=== PATIENT | female | born 1955 | race Caucasian/White ===

== ENCOUNTER → 2017-01-28 | Outpatient (CLI) | payer MEDICARE, MEDICAID ==
[2016-07-03 11:00] VITALS: BP 156/82
[~2017-01-28] MED LIST: ASPI-482 PO; ATOR40TA59 PO; BUDE9TAB PO; CLON0.5T PO; DEXT1TAB PO; DICY20TA3 PO; DIPH25CA58 PO; DULO30CA2 PO; ESOM40CA PO; ETAN50DI SQ; GABA-586 PO; HYDR-2666 PO; HYDR25TA9 PO; INSU100C SQ; INSU100V SQ; INSU100V8 SQ; LIDO700A4 TD; METF500T4 PO; METO10TA81 PO; MULT1TAB6 PO; OLME40TA PO; OMEG1CAP16 PO; ONDA4TAB10 PO; ONDA4TAB10 SL; PRAV40TA2 PO; SERT25TA PO; UBID1CAP19 PO
[2017-01-28 10:23] LABS: BASO # 0.1 x10^3/uL (0.0-0.2); BASO % 0 % (0-3); EOS % 1 % (0-3); HEMATOCRIT 39.9 % (36.0-47.0); HEMOGLOBIN 13.8 g/dL (12.0-15.5); LYMPH # 5.2 x10^3/uL (1.0-4.8); LYMPH % 31 % (24-48); MEAN CORPUSCULAR HEMOGLOBIN 31 pg (25-35); MEAN CORPUSCULAR HGB CONC 35 g/dL (31-37); MEAN CORPUSCULAR VOLUME 90 fL (79-100); MONO % 9 % (0-9); NEUT % 59 % (31-73); PLATELET COUNT 276 x10^3/uL (140-400); RED BLOOD COUNT 4.42 x10^6/uL (3.50-5.40); RED CELL DISTRIBUTION WIDTH 14.9 % (11.5-14.5); WHITE BLOOD COUNT 16.8 x10^3/uL (4.0-11.0)
[2017-01-28 10:26] LABS: BARBITURATES NEG (NEG); BENZODIAZEPINES NEG (NEG); CANNABINOIDS POS (NEG); COCAINE NEG (NEG); METHADONE NEG (NEG); OPIATES NEG (NEG); PHENCYCLIDINE NEG (NEG)
[2017-01-28 10:31] LABS: ALT (SGPT) 24 U/L (14-59); AST (SGOT) 15 U/L (15-37)
[2017-01-28 11:56] LABS: % EOS 2 % (0-5)
[2017-01-28 11:57] LABS: PLT ESTIMATE ADEQUATE (ADEQUATE)
--- NOTE | 2017-01-28 19:09 | EEG ---
DATE OF SERVICE: 01/28/2017 EEG NUMBER: [id number]. OBJECTIVE: This is a 61-year-old female patient with history of seizures. EEG was requested to evaluate cerebral activity. METHODS: Twenty electrodes were applied according to the international 10-20 electrode placement system. EKG monitoring, hyperventilation, intermittent photic stimulation, monopolar and bipolar montages are routinely utilized. The record was obtained on a digital system with video monitored. FINDINGS: 1. The patient was recorded in the awake and drowsy states. No sleep state was recorded. The overall background activity showed 10-30 microvolts. A posterior dominant rhythm of 8-9 Hz is observed. 2. Abnormalities. 3. No specific epileptiform discharge or electrographic seizure is seen. No focal or diffuse slowing. 3. Activation: Hyperventilation was performed with good efforts and normal response. Intermittent photic stimulation was performed with photic driving. No specific epileptiform discharge or electrographic seizures induced by hyperventilation or intermittent photic stimulation. IMPRESSION: This EEG is a normal study for the awake and drowsy states. No sleep state was recorded. No focal, lateralizing, specific epileptiform discharge, or electrographic seizure is seen. BIRGIT FUNEZ MD DR: Michael JOB#: [id number] / [id number] DMITRY
== END | disposition home or self-care (01) ==
LOC: RT 07:49
PROVIDERS: ATTEND Psychiatry & Neurology Neurology
DX: R56.9 Unspecified convulsions (principal)
CPT/HCPCS: 36415; 84443; 84450; 84460; 85007; 85027; 95816; G0481

== ENCOUNTER 2017-02-10 04:13 | Inpatient (IN) | payer MEDICAID, MEDICARE ==
[~2017-02-10] VITALS: Ht 165.1 cm; Wt 68.0 kg
[2017-02-10] MEDS ORDERED: ZIPRASIDONE IM 20 MG VIAL. IM ONE ×2 (04:35→05:00)
[2017-02-10 05:15] LABS: BASO % 0 % (0-3); EOS % 1 % (0-3); HEMOGLOBIN 12.4 g/dL (12.0-15.5); LYMPH # 3.5 x10^3/uL (1.0-4.8); LYMPH % 26 % (24-48); MEAN CORPUSCULAR HEMOGLOBIN 31 pg (25-35); MEAN CORPUSCULAR HGB CONC 34 g/dL (31-37); MEAN CORPUSCULAR VOLUME 92 fL (79-100); MONO % 8 % (0-9); NEUT % 65 % (31-73); PLATELET COUNT 220 x10^3/uL (140-400); RED BLOOD COUNT 4.04 x10^6/uL (3.50-5.40); RED CELL DISTRIBUTION WIDTH 14.8 % (11.5-14.5); WHITE BLOOD COUNT 13.6 x10^3/uL (4.0-11.0)
[2017-02-10 05:17] LABS: POTASSIUM ISTAT 3.1 mmol/L (3.5-5.0)
--- NOTE | 2017-02-10 05:27 | RAD ---
INDICATION: Altered mental status COMPARISON: January 09, 2016 TECHNIQUE: Axial CT images obtained through the head. One or more of the following individualized dose reduction techniques were utilized for this examination: 1. Automated exposure control; 2. Adjustment of the mA and/or kV according to patient size; 3. Use of iterative reconstruction technique. FINDINGS: No midline shift. Ventricles and sulci are prominent. Basilar cistern patent. No gross hemorrhage or intracranial mass. No displaced skull fracture. Regions of low attenuation of the white matter. IMPRESSION: No acute intracranial hemorrhage. Regions of low attenuation of the white matter. Nonspecific but frequently secondary to chronic small vessel ischemic disease. Apparent left frontal scalp cephalohematoma. Electronically signed by: Antony Armando (February 10, 2017 05:25:56)
[2017-02-10 05:30] LABS: CALCIUM 9.6 mg/dL (8.5-10.1); CREATININE 1.5 mg/dL (0.6-1.0); GFR 35.4; POTASSIUM 3.2 mmol/L (3.5-5.1)
[2017-02-10 05:37] LABS: ALBUMIN 3.7 g/dL (3.4-5.0); ALBUMIN/GLOBULIN RATIO 1.1 (1.0-1.7); TOTAL BILIRUBIN 0.4 mg/dL (0.2-1.0); TOTAL PROTEIN 7.2 g/dL (6.4-8.2)
[2017-02-10 05:56] LABS: BILIRUBIN,URINE NEGATIVE (NEG); GLUCOSE,URINE >=1000 mg/dL (NEG); NITRITE,URINE NEGATIVE (NEG); PH,URINE 5.5; PROTEIN,URINE 30 mg/dL (NEG-TRACE); UROBILINOGEN,URINE 0.2 mg/dL (0.2 mg/dL)
[2017-02-10 05:57] LABS: BARBITURATES NEG (NEG); BENZODIAZEPINES NEG (NEG); CANNABINOIDS POS (NEG); COCAINE NEG (NEG); METHADONE NEG (NEG); OPIATES NEG (NEG); PHENCYCLIDINE NEG (NEG)
[2017-02-10 06:08] LABS: BACTERIA,URINE 0 /HPF (0-FEW); SQUAMOUS EPITHELIAL CELL,UR FEW /LPF
[2017-02-10] MEDS ORDERED: ONDANSETRON PF 4 MG/2 ML VIAL. IV PRN ×2 (06:15→08:31)
--- NOTE | 2017-02-10 06:31 | PHYS DOC ---
Past Medical History Past Medical History: Depression, Diabetes-Type II, High Cholesterol, Hypertension Additional Past Medical Histor: psoriasis, neuropathy, gastroparesis Past Surgical History: Hysterectomy, Other Additional Past Surgical Histo: cataract surgery,SCAR TISSUE REMOVED FROM CHEST ,GASTROPARESIS Alcohol Use: Rarely Drug Use: Marijuana Adult General Chief Complaint Chief Complaint: SEIZURE HPI HPI History and physical exam is extremely limited secondary to patient's altered mental status and delirious type behavior. Patient was brought in by EMS and history is obtained by EMS report. No further history of the acute issue is obtainable at this time. No family to come with the patient. Patient is not answering questions appropriate. Patient is a 61 year old female who presents here today by EMS secondary to altered mental status. According to EMS they were called out to the department secondary to the reporting seizure-like activity. Patient was found the floor. There is no head trauma reported by EMS although on exam patient does have soft tissue swelling to her left forehead. Per EMS her vital signs were all within normal limits. Heart rate was in the 80s. Patient's blood sugar was greater than 100. Patient's blood pressure was within normal limits. Throughout the entire evaluation EMS reports that the patient was screaming kicking flailing and not acting appropriate. Upon arrival to the ER again history and physical exam was limited secondary to the patient's altered mental status. However on physical exam the patient's pupils were equally round and reactive to light. Her extraocular motions were intact. Patient was moaning groaning and speaking in discernible words and sounds. Patient would occasionally make appropriate, to regarding discomfort that she was having with people trying to hold her arms. Patient was diaphoretic. Patient was tachycardic. Patient's blood sugar was repeated and was greater than 100. Patient's blood pressure was within normal limits. Patient 's pulse ox was 98% on room air. Patient did have soft tissue swelling to her left forehead. Patient's heart was regular rate slightly tachycardic at 95-110. Patient's lungs were clear without wheezing rales or rhonchi. Patient is moving all extremities well and was flailing around ER. Patient had multiple skin tears with unclear etiology. In order to obtain further evaluation the patient was given 2 mg of IV Ativan as well as 10 of IM Geodon with some improvement in her agitation. Patient was placed in a c-collar and a CT scan of the head was ordered upon arrival. Patient's head CT did not reveal any acute pathology, bleed or abnormalities in the brain. Patient did have obvious soft tissue swelling around her left forehead on the CT scan. Upon reviewing the patient's record it was noted that the patient has recently had a normal EEG by Dr. galdamez on January 28. It is unclear why that was ordered so recently. Patient also had a recent hospitalization within the year where she was evaluated by neurology at that time she had a EEG performed that was also normal. At that time patient was discharged home with a diagnosis of delirium of unclear etiology. Patient's labs and the ER have been unremarkable. Patient's CBC and chemistry were within normal limits. An i-STAT was obtained which revealed an anion gap of 17. Patient had a slight acidosis with a bicarbonate of 16. Patient's urine drug screen was positive only for marijuana. Patient's alcohol level was unremarkable. Assessment and plan delirium/encephalopathy/altered mental status of unclear etiology. Patient has improved after the Ativan and Geodon. Patient be admitted to the hospital for further evaluation. I discussed the case with Dr. fontenot. We have put in a consult for neurology for further evaluation of her altered mentation. It was initially presumed that the patient had a history of seizure with subsequent were reported to by EMS however looking at the patient's history with a normal EEG that makes it unlikely. Initially it was felt that the patient might be postictal with confusion however again with 2 normal EKGs although not impossible makes it much less likely. Kriegel care time 35 minutes were utilized and the treatment and management of this patient's altered mental status and confusion and agitation Review of Systems Review of Systems Unable to obtain. Current Medications Current Medications Current Medications Medications (Trade) Dose Ordered Sig/Nicki Start Time Stop Time Status Last Admin Dose Admin Lorazepam (Ativan) 2 mg 1X ONCE 02/10/17 05:00 02/10/17 05:01 DC 02/10/17 04:40 2 MG Ondansetron HCl (Zofran) 4 mg PRN Q8HRS PRN 02/10/17 06:15 02/11/17 06:14 Sodium Chloride 1,000 ml @ 125 mls/hr Q8H 02/10/17 06:30 02/11/17 06:29 Ziprasidone (Geodon Im) 10 mg 1X ONCE 02/10/17 05:00 02/10/17 05:01 DC 02/10/17 04:42 10 MG Allergies Allergies Allergies Coded Allergies Type Severity Reaction Last Updated Verified metoclopramide Adverse Reaction Intermediate 01/10/16 Yes Physical Exam Physical Exam Constitutional: Well developed, well nourished, HENT: Normocephalic, soft tissue swelling left forehead., bilateral external ears normal, oropharynx moist, , nose normal. [] Eyes: PERRLA, EOMI, conjunctiva normal, Neck: Normal range of motion, no tenderness, supple, no stridor. [] Cardiovascular:Heart rate regular rhythm, tachycardic. Lungs & Thorax: Bilateral breath sounds clear to auscultation [] Abdomen: Bowel sounds normal, soft, no tenderness, no masses, no pulsatile masses. [] Skin: Warm, dry, no erythema, no rash. Multiple skin tears in her upper 70s. [] Back: No tenderness, no CVA tenderness. [] Extremities: No tenderness, no cyanosis, no clubbing, ROM intact, no edema. [] Neurologic: Agitated behavior. Moving all extremities. Current Patient Data Vital Signs Vital Signs Date Time Temp Pulse Resp B/P (MAP) Pulse Ox O2 Delivery O2 Flow Rate FiO2 02/10/17 04:30 96.3 75 20 132/84 (100) 95 Room Air 96.3 Lab Values Laboratory Tests Test 02/10/17 04:22 02/10/17 04:40 02/10/17 05:04 02/10/17 05:07 Glucose (Fingerstick) 202 mg/dL (70-99) H White Blood Count 13.6 x10^3/uL (4.0-11.0) H Red Blood Count 4.04 x10^6/uL (3.50-5.40) Hemoglobin 12.4 g/dL (12.0-15.5) Hematocrit 37.0 % (36.0-47.0) Mean Corpuscular Volume 92 fL (79-100) Mean Corpuscular Hemoglobin 31 pg (25-35) Mean Corpuscular Hemoglobin Concent 34 g/dL (31-37) Red Cell Distribution Width 14.8 % (11.5-14.5) H Platelet Count 220 x10^3/uL (140-400) Neutrophils (%) (Auto) 65 % (31-73) Lymphocytes (%) (Auto) 26 % (24-48) Monocytes (%) (Auto) 8 % (0-9) Eosinophils (%) (Auto) 1 % (0-3) Basophils (%) (Auto) 0 % (0-3) Neutrophils # (Auto) 8.8 x10^3uL (1.8-7.7) H Lymphocytes # (Auto) 3.5 x10^3/uL (1.0-4.8) Monocytes # (Auto) 1.1 x10^3/uL (0.0-1.1) Eosinophils # (Auto) 0.1 x10^3/uL (0.0-0.7) Basophils # (Auto) 0.0 x10^3/uL (0.0-0.2) Platelet Estimate Pending Sodium Level 136 mmol/L (136-145) Potassium Level 3.2 mmol/L (3.5-5.1) L Chloride Level 97 mmol/L (98-107) L Carbon Dioxide Level 19 mmol/L (21-32) L Anion Gap 20 (6-14) H 22 mmol/L (6-14) H Blood Urea Nitrogen 22 mg/dL (7-20) H Creatinine 1.5 mg/dL (0.6-1.0) H Estimated GFR (Cockcroft-Gault) 35.4 BUN/Creatinine Ratio 15 (6-20) Glucose Level 208 mg/dL (70-99) H 208 mg/dL (70-99) H Calcium Level 9.6 mg/dL (8.5-10.1) Total Bilirubin 0.4 mg/dL (0.2-1.0) Aspartate Amino Transferase (AST) 36 U/L (15-37) Alanine Aminotransferase (ALT) 38 U/L (14-59) Alkaline Phosphatase 57 U/L (46-116) Total Protein 7.2 g/dL (6.4-8.2) Albumin 3.7 g/dL (3.4-5.0) Albumin/Globulin Ratio 1.1 (1.0-1.7) Ethyl Alcohol Level < 10 mg/dL (0-10) POC Troponin I 0.00 ng/ml (<0.08) POC Hemoglobin 12.6 g/dL (12-15) POC Hematocrit 37 % (36-40) POC Sodium 134 mmol/L (135-145) L POC Potassium 3.1 mmol/L (3.5-5.0) L POC Chloride 101 mmol/L (98-110) POC Total CO2 16 mmol/L (23-32) L POC Blood Urea Nitrogen 20 mg/dL (8-26) POC Creatinine 1.1 mg/dL (0.5-1.4) POC Ionized Calcium (Renae) 1.01 mmol/L (1.13-1.32) L Test 02/10/17 05:24 Urine Collection Type Unknown Urine Color Yellow Urine Clarity Clear Urine pH 5.5 Urine Specific [place] 1.020 Urine Protein 30 mg/dL (NEG-TRACE) Urine Glucose (UA) >=1000 mg/dL (NEG) Urine Ketones (Stick) Negative mg/dL (NEG) Urine Blood Moderate (NEG) Urine Nitrite Negative (NEG) Urine Bilirubin Negative (NEG) Urine Urobilinogen Dipstick 0.2 mg/dL (0.2 mg/dL) Urine Leukocyte Esterase Negative (NEG) Urine RBC 1-2 /HPF (0-2) Urine WBC 1-4 /HPF (0-4) Urine Squamous Epithelial Cells Few /LPF Urine Bacteria 0 /HPF (0-FEW) Urine Mucus Slight /LPF Urine Opiates Screen Neg (NEG) Urine Methadone Screen Neg (NEG) Urine Barbiturates Neg (NEG) Urine Phencyclidine Screen Neg (NEG) Urine Amphetamine/Methamphetamine Neg (NEG) Urine Benzodiazepines Screen Neg (NEG) Urine Cocaine Screen Neg (NEG) Urine Cannabinoids Screen Pos (NEG) Urine Ethyl Alcohol Neg (NEG) Laboratory Tests 02/10/17 04:40 Laboratory Tests 02/10/17 04:40 02/10/17 05:07 EKG EKG [] Radiology/Procedures Radiology/Procedures [] Course & Med Decision Making Course & Med Decision Making Pertinent Labs and Imaging studies reviewed. (See chart for details) [] Dragon Disclaimer Dragon Disclaimer This electronic medical record was generated, in whole or in part, using a voice recognition dictation system. Departure Departure Impression: Primary Impression: Acute delirium Disposition: 09 ADMITTED INPATIENT Admitting Physician: Sofya Fontenot Condition: GUARDED Referrals: UNKNOWN PCP NAME (PCP) GRAHAM MEEHAN MD February 10, 2017 06:31
--- NOTE | 2017-02-10 06:49 | ACF ---
Admission Forms Criteria DELIRIUM Clinical Indications for Admission to Inpatient Care (Place 'X' for any and all applicable criteria): Admission is indicated for ANY ONE of the following(1)(2)(3)(4)(5): [ ]I. Delirium due to alcohol or sedative [A] withdrawal [X]II. Delirium of uncertain etiology that has not responded to appropriate treatment in an emergency department or urgent care setting [ ]III. Delirium that prevents performance of a life-sustaining function (eg, feeding or hydrating one self) Extended stay beyond goal length of stay may be needed for (2)(26): [ ]a) Delayed resolution of delirium [ ]b) Persistent dangerous behavior [ ]c) Persistent inability to perform an essential function[P] that cannot be managed at a lower level of care The original [employer] content created by [employer] has been revised. The portions of the content which have been revised are identified through the use of italic text or in bold, and [facility] has neither reviewed nor approved the modified material. All other unmodified content is copyright [facility] [employer]. Please see references footnoted in the original [facility] [employer] edition 2016 Admission Criteria Met?: Yes LEI MANE February 10, 2017 06:49
[2017-02-10 06:58] LABS: PLT ESTIMATE ADEQUATE (ADEQUATE)
--- NOTE | 2017-02-10 08:31 | PDOC1 ---
History and Physical Date of Admission Date of Admission DATE: 02/10/17 TIME: 08:23 Identification/Chief Complaint Chief Complaint confusion Problems: Source Source: Caregiver, Chart review, Patient History of Present Illness History of Present Illness 61 y.o female, lives at home with , but no one at bedside at ER on my encounter, admitted for acute delirium without a clear cause, Looking at past admits, she has been here before for similar presentation, had EEG twice , none showed epileptic focus, followed by neuro then. Service assessment in Jun 2016 when she presented similarly was the ff: Convulsive syncope, or possible seizure following a concussion, but I doubt that she had a true epileptic seizure. Chronic nausea and vomiting due to gastroparesis. She is a high fall risk, has had admits for gastroparesis too, She is a diabetic Hs is limited, she falls back to sleep, pupils equal, no FNDs, and CT head neg for acute pathology (I have personally reviewed), LAbs show mild hypokalemia and ARTUR, hypochloremia, mild gap acidosis and leukocytosis at 13. UA shows glucosuria but no UTI. VS ok UDS did test positive for cannabinoids Past Medical History Cardiovascular: HTN, Hyperlipidemia Pulmonary: No pertinent hx CENTRAL NERVOUS SYSTEM: Other GI: Constipation, Diverticulosis, GERD, Other Heme/Onc: No pertinent hx Hepatobiliary: No pertinent hx Psych: Depression Musculoskeletal: Osteoarthritis Rheumatologic: No pertinent hx Infectious disease: No pertinent hx Renal/: Chronic renal insuff Endocrine: Diabetes Past Surgical History Past Surgical History: Appendectomy, , Tonsillectomy, Hysterectomy, Other Family History Family History: Coronary Artery Disease, Stroke Social History Smoke: No ALCOHOL: occassional Drugs: Marijuana Current Problem List Problem List Problems Medical Problems: (1) Acute delirium Status: Acute Problems: Current Medications Current Medications Current Medications Lorazepam (Ativan) 2 mg STK-MED ONCE .ROUTE ; Start 02/10/17 at 04:23; Stop at 04:24; Status DC Ziprasidone (Geodon Im) 20 mg STK-MED ONCE IM ; Start 02/10/17 at 04:35; Stop at 04:36; Status DC Lorazepam (Ativan) 2 mg 1X ONCE IV Last administered on 02/10/17t 04:40; Start 5/17/17 at 05:00; Stop 02/10/17 at 05:01; Status DC Ziprasidone (Geodon Im) 10 mg 1X ONCE IM Last administered on 02/10/17t 04:42 ; Start 02/10/17 at 05:00; Stop 02/10/17 at 05:01; Status DC Ondansetron HCl (Zofran) 4 mg PRN Q8HRS PRN IV NAUSEA/VOMITING; Start 02/10/17 at 06:15; Stop 02/11/17 at 06:14 Sodium Chloride 1,000 ml @ 125 mls/hr Q8H IV ; Start 02/10/17 at 06:30; Stop at 06:29 Active Scripts Active Zofran Odt (Ondansetron) 4 Mg Tab.rapdis 4 Mg PO BID PRN Lidoderm (Lidocaine) 700 Mg Adh..patch 1 Patch TD DAILY Hydrocodone-Apap 5-325 (Hydrocodone Bit/Acetaminophen) 1 Each Tablet 1 Tab PO PRN Q6HRS PRN Reported Humalog (Insulin Lispro) 100 Unit/1 Ml Vial 100 Unit SQ Enbrel (Etanercept) 50 Mg/1 Ml Disp.syrin 50 Mg SQ WEEKLY Benicar (Olmesartan Medoxomil) 40 Mg Tablet 1 Tab PO DAILY Cough & Cold Tablet (Dextromethorphan Hbr/Chlor-Mal) 1 Each Tablet 1 Each PO PRN Dicyclomine Hcl 20 Mg Tablet 20 Mg PO QID PRN Atorvastatin Calcium 40 Mg Tablet 1 Tab PO QHS Centrum Complete Multivit Tab (Multivitamin/Iron/Folic Acid) 1 Each Tablet 1 Each PO DAILY Uceris (Budesonide) 9 Mg Tabdr...er 9 Mg PO DAILY Benadryl (Diphenhydramine Hcl) 25 Mg Capsule 1 Cap PO Zoloft (Sertraline Hcl) 25 Mg Tablet Unknown Dose PO DAILY Zofran Odt (Ondansetron) 4 Mg Tab.rapdis 1 Tab SL Q8HRS Neurontin (Gabapentin) 300 Mg Capsule 300 Mg PO TID Aspir 81 (Aspirin) 81 Mg Tablet. 81 Mg PO DAILY Coq-10 & Fish Oil Softgel (Ubidecarenone/[place]-3/Vit E) 1 Each Capsule 1 Each PO DAILY Nexium Capsule (Esomeprazole Magnesium) 40 Mg Capsule. 40 Mg PO DAILY Fish Oil 1,000 Mg Softgel ([place]-3 Fatty Acids/Fish Oil) 1 Each Capsule 1 Each PO DAILY Cymbalta (Duloxetine Hcl) 30 Mg Capsule.dr 60 Mg PO BID Pravastatin Sodium 40 Mg Tablet 40 Mg PO DAILY Klonopin (Clonazepam) 0.5 Mg Tablet 0.5 Mg PO BID PRN Allergies Allergies: Coded Allergies: metoclopramide (Verified Adverse Reaction, Intermediate, 01/10/16) Muscle twitching around mouth. ROS Review of System limited, confused Physical Exam General: No acute distress, Other (drowsy, confused but calm) HEENT: Atraumatic, PERRLA Lungs: Clear to auscultation, Normal air movement Heart: S1S2, RRR, no thrills, no rubs, no gallops Cardiovascular: S1, S2 Breasts: Normal, Rt breast nml w/o mass, Lt breast nml w/o mass, Nipples normal Abdomen: Normal bowel sounds, Soft, No tenderness, No hepatosplenomegaly, No masses Rectal Exam: not examined PELVIC: Nml ext genitalia Extremities: No clubbing, No cyanosis, No edema, Normal pulses, No tenderness/ swelling Skin: No rashes, No breakdown, No significant lesion Neuro: Other (; no FNDs) Psych/Mental Status: Other (drowsy) Vitals Vitals Vital Signs Date Time Temp Pulse Resp B/P (MAP) Pulse Ox O2 Delivery O2 Flow Rate FiO2 02/10/17 05:53 82 19 142/82 (102) 97 Room Air 02/10/17 04:30 98.2 98.2 Labs Labs Laboratory Tests Test 02/10/17 04:22 02/10/17 04:40 02/10/17 05:04 02/10/17 05:07 Glucose (Fingerstick) 202 mg/dL (70-99) White Blood Count 13.6 x10^3/uL (4.0-11.0) Red Blood Count 4.04 x10^6/uL (3.50-5.40) Hemoglobin 12.4 g/dL (12.0-15.5) Hematocrit 37.0 % (36.0-47.0) Mean Corpuscular Volume 92 fL (79-100) Mean Corpuscular Hemoglobin 31 pg (25-35) Mean Corpuscular Hemoglobin Concent 34 g/dL (31-37) Red Cell Distribution Width 14.8 % (11.5-14.5) Platelet Count 220 x10^3/uL (140-400) Neutrophils (%) (Auto) 65 % (31-73) Lymphocytes (%) (Auto) 26 % (24-48) Monocytes (%) (Auto) 8 % (0-9) Eosinophils (%) (Auto) 1 % (0-3) Basophils (%) (Auto) 0 % (0-3) Neutrophils # (Auto) 8.8 x10^3uL (1.8-7.7) Lymphocytes # (Auto) 3.5 x10^3/uL (1.0-4.8) Monocytes # (Auto) 1.1 x10^3/uL (0.0-1.1) Eosinophils # (Auto) 0.1 x10^3/uL (0.0-0.7) Basophils # (Auto) 0.0 x10^3/uL (0.0-0.2) Segmented Neutrophils % 68 % (35-66) Lymphocytes % 30 % (24-48) Monocytes % 2 % (0-10) Platelet Estimate Adequate (ADEQUATE) Sodium Level 136 mmol/L (136-145) Potassium Level 3.2 mmol/L (3.5-5.1) Chloride Level 97 mmol/L (98-107) Carbon Dioxide Level 19 mmol/L (21-32) Anion Gap 20 (6-14) 22 mmol/L (6-14) Blood Urea Nitrogen 22 mg/dL (7-20) Creatinine 1.5 mg/dL (0.6-1.0) Estimated GFR (Cockcroft-Gault) 35.4 BUN/Creatinine Ratio 15 (6-20) Glucose Level 208 mg/dL (70-99) 208 mg/dL (70-99) Calcium Level 9.6 mg/dL (8.5-10.1) Total Bilirubin 0.4 mg/dL (0.2-1.0) Aspartate Amino Transf (AST/SGOT) 36 U/L (15-37) Alanine Aminotransferase (ALT/SGPT) 38 U/L (14-59) Alkaline Phosphatase 57 U/L (46-116) Total Protein 7.2 g/dL (6.4-8.2) Albumin 3.7 g/dL (3.4-5.0) Albumin/Globulin Ratio 1.1 (1.0-1.7) Ethyl Alcohol Level < 10 mg/dL (0-10) Bedside Troponin I 0.00 ng/ml (<0.08) Bedside Hemoglobin 12.6 g/dL (12-15) Bedside Hematocrit 37 % (36-40) Bedside Sodium 134 mmol/L (135-145) Bedside Potassium 3.1 mmol/L (3.5-5.0) Bedside Chloride 101 mmol/L (98-110) Bedside Total CO2 16 mmol/L (23-32) Bedside Blood Urea Nitrogen 20 mg/dL (8-26) Bedside Creatinine 1.1 mg/dL (0.5-1.4) Bedside Ionized Calcium (Renae) 1.01 mmol/L (1.13-1.32) Test 02/10/17 05:24 Urine Collection Type Unknown Urine Color Yellow Urine Clarity Clear Urine pH 5.5 Urine Specific Carefree 1.020 Urine Protein 30 mg/dL (NEG-TRACE) Urine Glucose (UA) >=1000 mg/dL (NEG) Urine Ketones (Stick) Negative mg/dL (NEG) Urine Blood Moderate (NEG) Urine Nitrite Negative (NEG) Urine Bilirubin Negative (NEG) Urine Urobilinogen Dipstick 0.2 mg/dL (0.2 mg/dL) Urine Leukocyte Esterase Negative (NEG) Urine RBC 1-2 /HPF (0-2) Urine WBC 1-4 /HPF (0-4) Urine Squamous Epithelial Cells Few /LPF Urine Bacteria 0 /HPF (0-FEW) Urine Mucus Slight /LPF Urine Opiates Screen Neg (NEG) Urine Methadone Screen Neg (NEG) Urine Barbiturates Neg (NEG) Urine Phencyclidine Screen Neg (NEG) Urine Amphetamine/Methamphetamine Neg (NEG) Urine Benzodiazepines Screen Neg (NEG) Urine Cocaine Screen Neg (NEG) Urine Cannabinoids Screen Pos (NEG) Urine Ethyl Alcohol Neg (NEG) Laboratory Tests Test 02/10/17 04:22 02/10/17 04:40 02/10/17 05:04 02/10/17 05:07 Glucose (Fingerstick) 202 mg/dL (70-99) White Blood Count 13.6 x10^3/uL (4.0-11.0) Red Blood Count 4.04 x10^6/uL (3.50-5.40) Hemoglobin 12.4 g/dL (12.0-15.5) Hematocrit 37.0 % (36.0-47.0) Mean Corpuscular Volume 92 fL (79-100) Mean Corpuscular Hemoglobin 31 pg (25-35) Mean Corpuscular Hemoglobin Concent 34 g/dL (31-37) Red Cell Distribution Width 14.8 % (11.5-14.5) Platelet Count 220 x10^3/uL (140-400) Neutrophils (%) (Auto) 65 % (31-73) Lymphocytes (%) (Auto) 26 % (24-48) Monocytes (%) (Auto) 8 % (0-9) Eosinophils (%) (Auto) 1 % (0-3) Basophils (%) (Auto) 0 % (0-3) Neutrophils # (Auto) 8.8 x10^3uL (1.8-7.7) Lymphocytes # (Auto) 3.5 x10^3/uL (1.0-4.8) Monocytes # (Auto) 1.1 x10^3/uL (0.0-1.1) Eosinophils # (Auto) 0.1 x10^3/uL (0.0-0.7) Basophils # (Auto) 0.0 x10^3/uL (0.0-0.2) Segmented Neutrophils % 68 % (35-66) Lymphocytes % 30 % (24-48) Monocytes % 2 % (0-10) Platelet Estimate Adequate (ADEQUATE) Sodium Level 136 mmol/L (136-145) Potassium Level 3.2 mmol/L (3.5-5.1) Chloride Level 97 mmol/L (98-107) Carbon Dioxide Level 19 mmol/L (21-32) Anion Gap 20 (6-14) 22 mmol/L (6-14) Blood Urea Nitrogen 22 mg/dL (7-20) Creatinine 1.5 mg/dL (0.6-1.0) Estimated GFR (Cockcroft-Gault) 35.4 BUN/Creatinine Ratio 15 (6-20) Glucose Level 208 mg/dL (70-99) 208 mg/dL (70-99) Calcium Level 9.6 mg/dL (8.5-10.1) Total Bilirubin 0.4 mg/dL (0.2-1.0) Aspartate Amino Transf (AST/SGOT) 36 U/L (15-37) Alanine Aminotransferase (ALT/SGPT) 38 U/L (14-59) Alkaline Phosphatase 57 U/L (46-116) Total Protein 7.2 g/dL (6.4-8.2) Albumin 3.7 g/dL (3.4-5.0) Albumin/Globulin Ratio 1.1 (1.0-1.7) Ethyl Alcohol Level < 10 mg/dL (0-10) Bedside Troponin I 0.00 ng/ml (<0.08) Bedside Hemoglobin 12.6 g/dL (12-15) Bedside Hematocrit 37 % (36-40) Bedside Sodium 134 mmol/L (135-145) Bedside Potassium 3.1 mmol/L (3.5-5.0) Bedside Chloride 101 mmol/L (98-110) Bedside Total CO2 16 mmol/L (23-32) Bedside Blood Urea Nitrogen 20 mg/dL (8-26) Bedside Creatinine 1.1 mg/dL (0.5-1.4) Bedside Ionized Calcium (Renae) 1.01 mmol/L (1.13-1.32) Test 02/10/17 05:24 Urine Collection Type Unknown Urine Color Yellow Urine Clarity Clear Urine pH 5.5 Urine Specific Carefree 1.020 Urine Protein 30 mg/dL (NEG-TRACE) Urine Glucose (UA) >=1000 mg/dL (NEG) Urine Ketones (Stick) Negative mg/dL (NEG) Urine Blood Moderate (NEG) Urine Nitrite Negative (NEG) Urine Bilirubin Negative (NEG) Urine Urobilinogen Dipstick 0.2 mg/dL (0.2 mg/dL) Urine Leukocyte Esterase Negative (NEG) Urine RBC 1-2 /HPF (0-2) Urine WBC 1-4 /HPF (0-4) Urine Squamous Epithelial Cells Few /LPF Urine Bacteria 0 /HPF (0-FEW) Urine Mucus Slight /LPF Urine Opiates Screen Neg (NEG) Urine Methadone Screen Neg (NEG) Urine Barbiturates Neg (NEG) Urine Phencyclidine Screen Neg (NEG) Urine Amphetamine/Methamphetamine Neg (NEG) Urine Benzodiazepines Screen Neg (NEG) Urine Cocaine Screen Neg (NEG) Urine Cannabinoids Screen Pos (NEG) Urine Ethyl Alcohol Neg (NEG) VTE Prophylaxis Ordered VTE Prophylaxis Devices: Yes VTE Pharmacological Prophylaxi: Yes Assessment/Plan Assessment/Plan 1. Acute delirium 2. Neg EEG twice in past 3. Reactive leukocytosis, SIRS , no Sepsis 4. DM 2 with gastroparesis and glucosuria 5. MIld gap acidosis with hypochloremia and hypokalemia 6. Mild thormbocytopenia (208) 7. MEtabolic enceph (refer to # 1) PLAN: Would do IVF to correct elyte abN NPO till fully awake MAy check ESR, neuro consult PT/OT SUpportive meds HOld meds that can worsen encephalopathy DVT prophy with SCDs - has low platelets WOF further hyperglycemia SSI BMP again ada Seen at ER GIANNA POON MD February 10, 2017 08:31
[2017-02-10] MEDS ORDERED: ONDANSETRON ODT 4 MG TAB.RAPDIS. PO PRN ×2 (08:45)
[2017-02-10] MEDS ORDERED: ACETAMINOPHEN 500 MG TABLET PO PRN (08:45)
[2017-02-10] MEDS ORDERED: clonazePAM 0.5 MG TABLET PO PRN (08:45)
[2017-02-10] MEDS ORDERED: DEXTROSE 50% 25 GM / 50ML DISP.SYRIN. IV PRN (08:45)
[2017-02-10] MEDS ORDERED: DICYCLOMINE HCL 10 MG CAPSULE PO PRN ×2 (08:45)
[2017-02-10] MEDS ORDERED: diphenhydrAMINE HCL 25 MG CAPSULE PO PRN (08:45)
[2017-02-10] MEDS ORDERED: FATTY ACIDS PO SCH (09:00)
[2017-02-10] MEDS ORDERED: NON FORMULARY ITEM (Etanercept (Enbrel) 50 MG) SQ SCH (09:00)
[2017-02-10] MEDS ORDERED: FISH OIL PO SCH (09:00)
[2017-02-10] MEDS ORDERED: OMEGA PO SCH (09:00)
[2017-02-10 09:30] VITALS: BP 135/72
[2017-02-10] MEDS: IV NORMAL SALINE 1000ML BAG 1,000 ML IV SCH ×3 (10:06→18:33)
[2017-02-10] MEDS: PANTOPRAZOLE 40 MG TABLET.DR. PO SCH (10:07)
[2017-02-10] MEDS: ASPIRIN ENTERIC COATED 81 MG TABLET.DR. PO SCH (10:07)
[2017-02-10] MEDS: GABAPENTIN 300 MG CAPSULE. PO SCH ×3 (10:08→21:06)
[2017-02-10] MEDS: MULTIVITAMIN with MINERAL TABLET. PO SCH (10:08)
[2017-02-10] MEDS: LOSARTAN POTASSIUM 50 MG TABLET. PO SCH (10:08)
[2017-02-10] MEDS: BUDESONIDE 3 MG CAP.ER.24H. PO SCH (10:08)
[2017-02-10] MEDS: INSULIN ASPART 300 UNITS/3 ML INSULN.PEN SQ SCH ×3 (10:09→16:29)
[2017-02-10] MEDS: LIDOCAINE (700MG/PATCH) PATCH. TD SCH (10:10)
[2017-02-10] MEDS: OMEGA-3 FATTY ACIDS/FISH OIL 1,000 MG CAPSULE. PO SCH (10:13)
[2017-02-10 11:00] VITALS: BP 121/77
--- NOTE | 2017-02-10 11:54 | PDOC2 ---
NEUROLOGY CONSULT Date of Admission Date of Admission DATE: 02/10/17 TIME: 11:42 Reason for Consult Reason for Consult: Altered mental status Referring Physician Referring Physician: Dr. Yang Source Source: Chart review, Patient History of Present Illness History of Present Illness That patient is a 61-year-old right-handed female admitted with altered mental status. No one is available to give history. Apparently some convulsive activity was observed. The patient was here in December and June 2016 for altered mental status. EEG was negative in December. When I saw the patient in June, I got the impression of nonepileptic seizures, possibly just convulsive syncope as she had fallen and hit her head on the toilet. Then the patient saw Dr. Gonzalez last month in the office who obtain another EEG, 01/28, which was also negative. The patient is unable to provide further history. Past Medical History Cardiovascular: HTN, Syncope, Hyperlipidemia CENTRAL NERVOUS SYSTEM: Other ( headaches, numbness) GI: Constipation, Diverticulosis (itis), GERD, Other ( gastroparesis, diarrhea) Psych: Anxiety, Depression ENT: Other (Hearing loss, cataracts) Renal/: Chronic renal insuff Endocrine: Diabetes Past Surgical History Past Surgical History: Appendectomy, , Tonsillectomy, Hysterectomy, Colon Resection, Other ( lysis of adhesions) Family History Family History: No pertinent hx Social History Social History , occasional alcohol, denies tobacco or street drugs Current Medications Current Medications Current Medications Lorazepam (Ativan) 2 mg STK-MED ONCE .ROUTE ; Start 02/10/17 at 04:23; Stop at 04:24; Status DC Ziprasidone (Geodon Im) 20 mg STK-MED ONCE IM ; Start 02/10/17 at 04:35; Stop at 04:36; Status DC Lorazepam (Ativan) 2 mg 1X ONCE IV Last administered on 02/10/17 04:40; Start 02/10/17 at 05:00; Stop 02/10/17 at 05:01; Status DC Ziprasidone (Geodon Im) 10 mg 1X ONCE IM Last administered on 02/10/17t 04:42 ; Start 02/10/17 at 05:00; Stop 02/10/17 at 05:01; Status DC Ondansetron HCl (Zofran) 4 mg PRN Q8HRS PRN IV NAUSEA/VOMITING; Start 02/10/17 at 06:15; Stop 02/10/17 at 08:34; Status DC Sodium Chloride 1,000 ml @ 125 mls/hr Q8H IV Last administered on 02/10/17 10 :06; Start 02/10/17 at 06:30; Stop 02/11/17 at 06:29 Ondansetron HCl (Zofran) 4 mg PRN Q6HRS PRN IV NAUSEA/VOMITING; Start 02/10/17 at 08:31; Stop 02/11/17 at 08:30 Acetaminophen (Tylenol) 500 mg PRN Q6HRS PRN PO MILD PAIN / TEMP; Start at 08:45 Aspirin (Ecotrin) 81 mg DAILY08 PO Last administered on 02/10/17t 10:07; Start 02/10/17 at 09:00 Atorvastatin Calcium (Lipitor) 40 mg QHS PO ; Start 02/10/17 at 21:00; Stop at 21:00; Status DC Clonazepam (KlonoPIN) 0.5 mg PRN BID PRN PO ANXIETY; Start 02/10/17 at 08:45 Diphenhydramine HCl (Benadryl) 25 mg PRN TID PRN PO itch; Start 02/10/17 at 08: 45 Acetaminophen/ Hydrocodone Bitart (Lortab 5/325) 1 tab PRN Q6HRS PRN PO PAIN; Start 02/10/17 at 08:45 Lidocaine (Lidoderm) 1 patch DAILY TD ; Start 02/10/17 at 09:00 Ondansetron HCl (Zofran Odt) 4 mg PRN Q8HRS PRN PO n/v; Start 02/10/17 at 08:45 Ondansetron HCl (Zofran Odt) 4 mg PRN BID PRN PO NAUSEA/VOMITING; Start at 08:45 Budesonide (Entocort) 9 mg DAILY PO Last administered on 02/10/17t 10:08; Start 02/10/17 at 09:00 Dicyclomine HCl (Bentyl) 10 mg PRN QID PRN PO BOWEL SPASMS; Start 02/10/17 at 08:45; Stop 02/10/17 at 08:45; Status DC Pantoprazole Sodium (Protonix) 40 mg DAILYAC PO Last administered on 02/10/17 10:07; Start 02/10/17 at 09:30 Non-Formulary Medication 50 mg WEEKLY SQ ; Start 02/10/17 at 09:00; Status UNV Gabapentin (Neurontin) 300 mg TID PO Last administered on 02/10/17 10:08; Start 02/10/17 at 09:30 Multivitamins (Thera M Plus) 1 tab DAILY PO Last administered on 02/10/17 10: 08; Start 02/10/17 at 10:00 Losartan Potassium (Cozaar) 100 mg DAILY PO Last administered on 02/10/17 10: 08; Start 02/10/17 at 10:00 Non-Formulary Medication 1 each DAILY PO ; Start 02/10/17 at 09:00; Status UNV Atorvastatin Calcium (Lipitor) 10 mg QHS PO ; Start 02/10/17 at 21:00 Fish Oil (Fish Oil) 1,000 mg DAILY PO Last administered on 02/10/17 10:13; Start 02/10/17 at 09:30 Insulin Aspart (NovoLOG) 0-9 UNITS TIDWMEALS SQ ; Start 02/10/17 at 09:00 Dextrose (Dextrose 50%-Water Syringe) 12.5 gm PRN Q15MIN PRN IV SEE COMMENTS; Start 02/10/17 at 08:45 Dicyclomine HCl (Bentyl) 20 mg PRN QID PRN PO BOWEL SPASMS; Start 02/10/17 at 08:45 Active Scripts Active Zofran Odt (Ondansetron) 4 Mg Tab.rapdis 4 Mg PO BID PRN Lidoderm (Lidocaine) 700 Mg Adh..patch 1 Patch TD DAILY Hydrocodone-Apap 5-325 (Hydrocodone Bit/Acetaminophen) 1 Each Tablet 1 Tab PO PRN Q6HRS PRN Reported Humalog (Insulin Lispro) 100 Unit/1 Ml Vial 100 Unit SQ Enbrel (Etanercept) 50 Mg/1 Ml Disp.syrin 50 Mg SQ WEEKLY Benicar (Olmesartan Medoxomil) 40 Mg Tablet 1 Tab PO DAILY Cough & Cold Tablet (Dextromethorphan Hbr/Chlor-Mal) 1 Each Tablet 1 Each PO PRN Dicyclomine Hcl 20 Mg Tablet 20 Mg PO QID PRN Atorvastatin Calcium 40 Mg Tablet 1 Tab PO QHS Centrum Complete Multivit Tab (Multivitamin/Iron/Folic Acid) 1 Each Tablet 1 Each PO DAILY Uceris (Budesonide) 9 Mg Tabdr...er 9 Mg PO DAILY Benadryl (Diphenhydramine Hcl) 25 Mg Capsule 1 Cap PO Zoloft (Sertraline Hcl) 25 Mg Tablet Unknown Dose PO DAILY Zofran Odt (Ondansetron) 4 Mg Tab.rapdis 1 Tab SL Q8HRS Neurontin (Gabapentin) 300 Mg Capsule 300 Mg PO TID Aspir 81 (Aspirin) 81 Mg Tablet.dr 81 Mg PO DAILY Coq-10 & Fish Oil Softgel (Ubidecarenone/Hadley-3/Vit E) 1 Each Capsule 1 Each PO DAILY Nexium Capsule (Esomeprazole Magnesium) 40 Mg Capsule.dr 40 Mg PO DAILY Fish Oil 1,000 Mg Softgel (Hadley-3 Fatty Acids/Fish Oil) 1 Each Capsule 1 Each PO DAILY Cymbalta (Duloxetine Hcl) 30 Mg Capsule.dr 60 Mg PO BID Pravastatin Sodium 40 Mg Tablet 40 Mg PO DAILY Klonopin (Clonazepam) 0.5 Mg Tablet 0.5 Mg PO BID PRN Allergies Allergies: Coded Allergies: metoclopramide (Verified Adverse Reaction, Intermediate, 01/10/16) Muscle twitching around mouth. ROS Review of System Not reliably obtained Physical Exam Physical Examination PHYSICAL EXAMINATION: Vital signs: see above. General appearance is normal and in no acute distress. HEENT: Normocephalic and nontraumatic. Eyes, nose, ears, and throat are unremarkable. Neck is supple. No lymphadenopathy. No bruits are heard over the carotid artery. No crepitus. NEUROLOGICAL EXAMINATION: She is sleeping, eyes closed, arouses to voice. She follows some commands. She knows the location, month, and year. She cannot tell me why she is here. Cranial nerve examination shows full visual dumont to threat, equally reactive pupils, and intact extraocular movements. There is no facial asymmetry. Reflexes are 1+ with flex our plant responses. She moves all extremities, strength at least 4/5 She responds to pinprick in all 4 extremities She does not cooperate with cerebellar testing. Vitals VITALS Vital Signs Date Time Temp Pulse Resp B/P (MAP) Pulse Ox O2 Delivery O2 Flow Rate FiO2 02/10/17 10:08 74 135/72 02/10/17 07:00 18 98 Room Air 02/10/17 04:30 98.2 98.2 Labs Labs Laboratory Tests Test 02/10/17 04:22 02/10/17 04:40 02/10/17 05:04 02/10/17 05:07 Glucose (Fingerstick) 202 mg/dL (70-99) White Blood Count 13.6 x10^3/uL (4.0-11.0) Red Blood Count 4.04 x10^6/uL (3.50-5.40) Hemoglobin 12.4 g/dL (12.0-15.5) Hematocrit 37.0 % (36.0-47.0) Mean Corpuscular Volume 92 fL (79-100) Mean Corpuscular Hemoglobin 31 pg (25-35) Mean Corpuscular Hemoglobin Concent 34 g/dL (31-37) Red Cell Distribution Width 14.8 % (11.5-14.5) Platelet Count 220 x10^3/uL (140-400) Neutrophils (%) (Auto) 65 % (31-73) Lymphocytes (%) (Auto) 26 % (24-48) Monocytes (%) (Auto) 8 % (0-9) Eosinophils (%) (Auto) 1 % (0-3) Basophils (%) (Auto) 0 % (0-3) Neutrophils # (Auto) 8.8 x10^3uL (1.8-7.7) Lymphocytes # (Auto) 3.5 x10^3/uL (1.0-4.8) Monocytes # (Auto) 1.1 x10^3/uL (0.0-1.1) Eosinophils # (Auto) 0.1 x10^3/uL (0.0-0.7) Basophils # (Auto) 0.0 x10^3/uL (0.0-0.2) Segmented Neutrophils % 68 % (35-66) Lymphocytes % 30 % (24-48) Monocytes % 2 % (0-10) Platelet Estimate Adequate (ADEQUATE) Erythrocyte Sedimentation Rate 37 (0-25) Sodium Level 136 mmol/L (136-145) Potassium Level 3.2 mmol/L (3.5-5.1) Chloride Level 97 mmol/L (98-107) Carbon Dioxide Level 19 mmol/L (21-32) Anion Gap 20 (6-14) 22 mmol/L (6-14) Blood Urea Nitrogen 22 mg/dL (7-20) Creatinine 1.5 mg/dL (0.6-1.0) Estimated GFR (Cockcroft-Gault) 35.4 BUN/Creatinine Ratio 15 (6-20) Glucose Level 208 mg/dL (70-99) 208 mg/dL (70-99) Calcium Level 9.6 mg/dL (8.5-10.1) Total Bilirubin 0.4 mg/dL (0.2-1.0) Aspartate Amino Transf (AST/SGOT) 36 U/L (15-37) Alanine Aminotransferase (ALT/SGPT) 38 U/L (14-59) Alkaline Phosphatase 57 U/L (46-116) Total Protein 7.2 g/dL (6.4-8.2) Albumin 3.7 g/dL (3.4-5.0) Albumin/Globulin Ratio 1.1 (1.0-1.7) Ethyl Alcohol Level < 10 mg/dL (0-10) Bedside Troponin I 0.00 ng/ml (<0.08) Bedside Hemoglobin 12.6 g/dL (12-15) Bedside Hematocrit 37 % (36-40) Bedside Sodium 134 mmol/L (135-145) Bedside Potassium 3.1 mmol/L (3.5-5.0) Bedside Chloride 101 mmol/L (98-110) Bedside Total CO2 16 mmol/L (23-32) Bedside Blood Urea Nitrogen 20 mg/dL (8-26) Bedside Creatinine 1.1 mg/dL (0.5-1.4) Bedside Ionized Calcium (Renae) 1.01 mmol/L (1.13-1.32) Test 02/10/17 05:24 02/10/17 09:53 02/10/17 11:08 Urine Collection Type Unknown Urine Color Yellow Urine Clarity Clear Urine pH 5.5 Urine Specific [place] 1.020 Urine Protein 30 mg/dL (NEG-TRACE) Urine Glucose (UA) >=1000 mg/dL (NEG) Urine Ketones (Stick) Negative mg/dL (NEG) Urine Blood Moderate (NEG) Urine Nitrite Negative (NEG) Urine Bilirubin Negative (NEG) Urine Urobilinogen Dipstick 0.2 mg/dL (0.2 mg/dL) Urine Leukocyte Esterase Negative (NEG) Urine RBC 1-2 /HPF (0-2) Urine WBC 1-4 /HPF (0-4) Urine Squamous Epithelial Cells Few /LPF Urine Bacteria 0 /HPF (0-FEW) Urine Mucus Slight /LPF Urine Opiates Screen Neg (NEG) Urine Methadone Screen Neg (NEG) Urine Barbiturates Neg (NEG) Urine Phencyclidine Screen Neg (NEG) Urine Amphetamine/Methamphetamine Neg (NEG) Urine Benzodiazepines Screen Neg (NEG) Urine Cocaine Screen Neg (NEG) Urine Cannabinoids Screen Pos (NEG) Urine Ethyl Alcohol Neg (NEG) Glucose (Fingerstick) 136 mg/dL (70-99) 124 mg/dL (70-99) Laboratory Tests Test 02/10/17 04:22 02/10/17 04:40 02/10/17 05:04 02/10/17 05:07 Glucose (Fingerstick) 202 mg/dL (70-99) White Blood Count 13.6 x10^3/uL (4.0-11.0) Red Blood Count 4.04 x10^6/uL (3.50-5.40) Hemoglobin 12.4 g/dL (12.0-15.5) Hematocrit 37.0 % (36.0-47.0) Mean Corpuscular Volume 92 fL (79-100) Mean Corpuscular Hemoglobin 31 pg (25-35) Mean Corpuscular Hemoglobin Concent 34 g/dL (31-37) Red Cell Distribution Width 14.8 % (11.5-14.5) Platelet Count 220 x10^3/uL (140-400) Neutrophils (%) (Auto) 65 % (31-73) Lymphocytes (%) (Auto) 26 % (24-48) Monocytes (%) (Auto) 8 % (0-9) Eosinophils (%) (Auto) 1 % (0-3) Basophils (%) (Auto) 0 % (0-3) Neutrophils # (Auto) 8.8 x10^3uL (1.8-7.7) Lymphocytes # (Auto) 3.5 x10^3/uL (1.0-4.8) Monocytes # (Auto) 1.1 x10^3/uL (0.0-1.1) Eosinophils # (Auto) 0.1 x10^3/uL (0.0-0.7) Basophils # (Auto) 0.0 x10^3/uL (0.0-0.2) Segmented Neutrophils % 68 % (35-66) Lymphocytes % 30 % (24-48) Monocytes % 2 % (0-10) Platelet Estimate Adequate (ADEQUATE) Erythrocyte Sedimentation Rate 37 (0-25) Sodium Level 136 mmol/L (136-145) Potassium Level 3.2 mmol/L (3.5-5.1) Chloride Level 97 mmol/L (98-107) Carbon Dioxide Level 19 mmol/L (21-32) Anion Gap 20 (6-14) 22 mmol/L (6-14) Blood Urea Nitrogen 22 mg/dL (7-20) Creatinine 1.5 mg/dL (0.6-1.0) Estimated GFR (Cockcroft-Gault) 35.4 BUN/Creatinine Ratio 15 (6-20) Glucose Level 208 mg/dL (70-99) 208 mg/dL (70-99) Calcium Level 9.6 mg/dL (8.5-10.1) Total Bilirubin 0.4 mg/dL (0.2-1.0) Aspartate Amino Transf (AST/SGOT) 36 U/L (15-37) Alanine Aminotransferase (ALT/SGPT) 38 U/L (14-59) Alkaline Phosphatase 57 U/L (46-116) Total Protein 7.2 g/dL (6.4-8.2) Albumin 3.7 g/dL (3.4-5.0) Albumin/Globulin Ratio 1.1 (1.0-1.7) Ethyl Alcohol Level < 10 mg/dL (0-10) Bedside Troponin I 0.00 ng/ml (<0.08) Bedside Hemoglobin 12.6 g/dL (12-15) Bedside Hematocrit 37 % (36-40) Bedside Sodium 134 mmol/L (135-145) Bedside Potassium 3.1 mmol/L (3.5-5.0) Bedside Chloride 101 mmol/L (98-110) Bedside Total CO2 16 mmol/L (23-32) Bedside Blood Urea Nitrogen 20 mg/dL (8-26) Bedside Creatinine 1.1 mg/dL (0.5-1.4) Bedside Ionized Calcium (Renae) 1.01 mmol/L (1.13-1.32) Test 02/10/17 05:24 02/10/17 09:53 02/10/17 11:08 Urine Collection Type Unknown Urine Color Yellow Urine Clarity Clear Urine pH 5.5 Urine Specific [place]io 1.020 Urine Protein 30 mg/dL (NEG-TRACE) Urine Glucose (UA) >=1000 mg/dL (NEG) Urine Ketones (Stick) Negative mg/dL (NEG) Urine Blood Moderate (NEG) Urine Nitrite Negative (NEG) Urine Bilirubin Negative (NEG) Urine Urobilinogen Dipstick 0.2 mg/dL (0.2 mg/dL) Urine Leukocyte Esterase Negative (NEG) Urine RBC 1-2 /HPF (0-2) Urine WBC 1-4 /HPF (0-4) Urine Squamous Epithelial Cells Few /LPF Urine Bacteria 0 /HPF (0-FEW) Urine Mucus Slight /LPF Urine Opiates Screen Neg (NEG) Urine Methadone Screen Neg (NEG) Urine Barbiturates Neg (NEG) Urine Phencyclidine Screen Neg (NEG) Urine Amphetamine/Methamphetamine Neg (NEG) Urine Benzodiazepines Screen Neg (NEG) Urine Cocaine Screen Neg (NEG) Urine Cannabinoids Screen Pos (NEG) Urine Ethyl Alcohol Neg (NEG) Glucose (Fingerstick) 136 mg/dL (70-99) 124 mg/dL (70-99) Images Images CT head: FINDINGS: No midline shift. Ventricles and sulci are prominent. Basilar cistern patent. No gross hemorrhage or intracranial mass. No displaced skull fracture. Regions of low attenuation of the white matter. IMPRESSION: No acute intracranial hemorrhage. Regions of low attenuation of the white matter. Nonspecific but frequently secondary to chronic small vessel ischemic disease. Apparent left frontal scalp cephalohematoma. MRI brain negative, 07/10/16 Assessment/Plan Assessment/Plan Impression: Metabolic encephalopathy, consider medications, note positive urine drug screen for cannabinoids She has had seizures in the past with negative EEG studies, the one I saw her for in June was convulsive syncope, and the patient had uncomplicated sick of the in the December 2015 admission. She is had to negative EEG studies. I fully realize that EEG is not 100% sensitive for epilepsy. I do not think that she is having ongoing epileptic seizures. Positive cannabinoids on urine drug screen Recommendations: Observation Hold off on repeat EEG and MRI studies Hold off on lumbar puncture Thank you for letting me help with the patient's care. BELINDA KIRBY MD February 10, 2017 11:54
[2017-02-10 12:51] VITALS: BP 135/72
--- NOTE | 2017-02-10 14:44 | EKG ---
[facility] [address] [place] [address] Test Date: 2017-02-10 Test Time: 05:30:55 Pat Name: CALOS VOGEL Department: Room: [facility] Gender: Personnel Coordinator: : 1955 Requested By: GRAHAM MEEHAN Order Number: [id number] Reading MD: Marcos Win Measurements Intervals Blair Rate: P: PA: QRS: QRSD: T: QT: QTc: Interpretive Statements SR NON-SPECIF ST/T CHANGES Electronically Signed On 02-15-2017 13:58:02 CDT by Marcos Win
[2017-02-10 15:00] VITALS: BP 128/63
[2017-02-10] MEDS: HYDROcodone/APAP 5/325MG 1 TAB TABLET PO PRN (17:46)
[2017-02-10 19:00] VITALS: BP 122/65
[2017-02-10] MEDS ORDERED: ATORVASTATIN CALCIUM 40 MG TABLET. PO SCH (21:00)
[2017-02-10] MEDS: ATORVASTATIN CALCIUM 10 MG TABLET. PO SCH (21:06)
[2017-02-10 23:00] VITALS: BP 132/80
[2017-02-11 03:00] VITALS: BP 120/74
[2017-02-11 04:17] LABS: CALCIUM 8.7 mg/dL (8.5-10.1); GFR 56.6; POTASSIUM 3.2 mmol/L (3.5-5.1)
[2017-02-11 07:00] VITALS: BP 146/74
[2017-02-11] MEDS: INSULIN ASPART 300 UNITS/3 ML INSULN.PEN SQ SCH ×3 (08:00→17:41)
[2017-02-11] MEDS: ASPIRIN ENTERIC COATED 81 MG TABLET.DR. PO SCH (08:41)
[2017-02-11] MEDS: MULTIVITAMIN with MINERAL TABLET. PO SCH (08:41)
[2017-02-11] MEDS: PANTOPRAZOLE 40 MG TABLET.DR. PO SCH (08:42)
[2017-02-11] MEDS: OMEGA-3 FATTY ACIDS/FISH OIL 1,000 MG CAPSULE. PO SCH (08:42)
[2017-02-11] MEDS: GABAPENTIN 300 MG CAPSULE. PO SCH ×3 (08:42→22:01)
[2017-02-11] MEDS: LOSARTAN POTASSIUM 50 MG TABLET. PO SCH (08:46)
[2017-02-11] MEDS: LIDOCAINE (700MG/PATCH) PATCH. TD SCH ×2 (08:47→16:16)
[2017-02-11] MEDS: BUDESONIDE 3 MG CAP.ER.24H. PO SCH (08:48)
[2017-02-11 11:00] VITALS: BP 145/78
--- NOTE | 2017-02-11 12:26 | PDOC ---
PROGRESS NOTES Chief Complaint Chief Complaint 1. Acute delirium, metabolic encephalopathy 2. Neg EEG twice in past 3 SIRS , no Sepsis 4. DM 2 with gastroparesis and glucosuria 5. MIld gap acidosis with hypochloremia and hypokalemia 6. neck pain, multiple falls History of Present Illness History of Present Illness IVF ADA diet, now fully alert neuro consult following PT/OT SUpportive meds topical for neck pain Dm2, poor control Vitals Vitals Vital Signs Date Time Temp Pulse Resp B/P (MAP) Pulse Ox O2 Delivery O2 Flow Rate FiO2 02/11/17 11:00 98.1 76 17 145/78 (100) 96 Room Air 98.1 Physical Exam General: Alert, Oriented X3, Cooperative, No acute distress, Other (drowsy, confused but calm) Heart: Regular rate Lungs: Clear Abdomen: Normal bowel sounds, Soft, No tenderness, No hepatosplenomegaly, No masses Extremities: No clubbing, No cyanosis, No edema, Normal pulses, No tenderness/ swelling Skin: No rashes, No breakdown, No significant lesion Labs LABS Laboratory Tests Test 02/10/17 16:20 02/10/17 20:33 02/11/17 03:05 02/11/17 08:15 Glucose (Fingerstick) 109 mg/dL (70-99) 116 mg/dL (70-99) 80 mg/dL (70-99) Sodium Level 142 mmol/L (136-145) Potassium Level 3.2 mmol/L (3.5-5.1) Chloride Level 107 mmol/L (98-107) Carbon Dioxide Level 27 mmol/L (21-32) Anion Gap 8 (6-14) Blood Urea Nitrogen 11 mg/dL (7-20) Creatinine 1.0 mg/dL (0.6-1.0) Estimated GFR (Cockcroft-Gault) 56.6 Glucose Level 118 mg/dL (70-99) Calcium Level 8.7 mg/dL (8.5-10.1) Review of Systems Review of Systems neck pain would like reg food, feels better Assessment and Plan Assessmemt and Plan Problems Medical Problems: (1) Acute delirium Status: Acute Problems: Comment Review of Relevant I have reviewed the following items etelvina (where applicable) has been applied. Labs Laboratory Tests Test 02/10/17 04:22 02/10/17 04:40 02/10/17 05:04 02/10/17 05:07 Glucose (Fingerstick) 202 mg/dL (70-99) White Blood Count 13.6 x10^3/uL (4.0-11.0) Red Blood Count 4.04 x10^6/uL (3.50-5.40) Hemoglobin 12.4 g/dL (12.0-15.5) Hematocrit 37.0 % (36.0-47.0) Mean Corpuscular Volume 92 fL (79-100) Mean Corpuscular Hemoglobin 31 pg (25-35) Mean Corpuscular Hemoglobin Concent 34 g/dL (31-37) Red Cell Distribution Width 14.8 % (11.5-14.5) Platelet Count 220 x10^3/uL (140-400) Neutrophils (%) (Auto) 65 % (31-73) Lymphocytes (%) (Auto) 26 % (24-48) Monocytes (%) (Auto) 8 % (0-9) Eosinophils (%) (Auto) 1 % (0-3) Basophils (%) (Auto) 0 % (0-3) Neutrophils # (Auto) 8.8 x10^3uL (1.8-7.7) Lymphocytes # (Auto) 3.5 x10^3/uL (1.0-4.8) Monocytes # (Auto) 1.1 x10^3/uL (0.0-1.1) Eosinophils # (Auto) 0.1 x10^3/uL (0.0-0.7) Basophils # (Auto) 0.0 x10^3/uL (0.0-0.2) Segmented Neutrophils % 68 % (35-66) Lymphocytes % 30 % (24-48) Monocytes % 2 % (0-10) Platelet Estimate Adequate (ADEQUATE) Erythrocyte Sedimentation Rate 37 (0-25) Sodium Level 136 mmol/L (136-145) Potassium Level 3.2 mmol/L (3.5-5.1) Chloride Level 97 mmol/L (98-107) Carbon Dioxide Level 19 mmol/L (21-32) Anion Gap 20 (6-14) 22 mmol/L (6-14) Blood Urea Nitrogen 22 mg/dL (7-20) Creatinine 1.5 mg/dL (0.6-1.0) Estimated GFR (Cockcroft-Gault) 35.4 BUN/Creatinine Ratio 15 (6-20) Glucose Level 208 mg/dL (70-99) 208 mg/dL (70-99) Hemoglobin A1c 6.9 % (4.8-5.6) Calcium Level 9.6 mg/dL (8.5-10.1) Total Bilirubin 0.4 mg/dL (0.2-1.0) Aspartate Amino Transf (AST/SGOT) 36 U/L (15-37) Alanine Aminotransferase (ALT/SGPT) 38 U/L (14-59) Alkaline Phosphatase 57 U/L (46-116) Total Protein 7.2 g/dL (6.4-8.2) Albumin 3.7 g/dL (3.4-5.0) Albumin/Globulin Ratio 1.1 (1.0-1.7) Ethyl Alcohol Level < 10 mg/dL (0-10) Bedside Troponin I 0.00 ng/ml (<0.08) Bedside Hemoglobin 12.6 g/dL (12-15) Bedside Hematocrit 37 % (36-40) Bedside Sodium 134 mmol/L (135-145) Bedside Potassium 3.1 mmol/L (3.5-5.0) Bedside Chloride 101 mmol/L (98-110) Bedside Total CO2 16 mmol/L (23-32) Bedside Blood Urea Nitrogen 20 mg/dL (8-26) Bedside Creatinine 1.1 mg/dL (0.5-1.4) Bedside Ionized Calcium (Renae) 1.01 mmol/L (1.13-1.32) Test 02/10/17 05:24 02/10/17 09:53 02/10/17 11:08 02/10/17 16:20 Urine Collection Type Unknown Urine Color Yellow Urine Clarity Clear Urine pH 5.5 Urine Specific [place] 1.020 Urine Protein 30 mg/dL (NEG-TRACE) Urine Glucose (UA) >=1000 mg/dL (NEG) Urine Ketones (Stick) Negative mg/dL (NEG) Urine Blood Moderate (NEG) Urine Nitrite Negative (NEG) Urine Bilirubin Negative (NEG) Urine Urobilinogen Dipstick 0.2 mg/dL (0.2 mg/dL) Urine Leukocyte Esterase Negative (NEG) Urine RBC 1-2 /HPF (0-2) Urine WBC 1-4 /HPF (0-4) Urine Squamous Epithelial Cells Few /LPF Urine Bacteria 0 /HPF (0-FEW) Urine Mucus Slight /LPF Urine Opiates Screen Neg (NEG) Urine Methadone Screen Neg (NEG) Urine Barbiturates Neg (NEG) Urine Phencyclidine Screen Neg (NEG) Urine Amphetamine/Methamphetamine Neg (NEG) Urine Benzodiazepines Screen Neg (NEG) Urine Cocaine Screen Neg (NEG) Urine Cannabinoids Screen Pos (NEG) Urine Ethyl Alcohol Neg (NEG) Glucose (Fingerstick) 136 mg/dL (70-99) 124 mg/dL (70-99) 109 mg/dL (70-99) Test 02/10/17 20:33 02/11/17 03:05 02/11/17 08:15 Glucose (Fingerstick) 116 mg/dL (70-99) 80 mg/dL (70-99) Sodium Level 142 mmol/L (136-145) Potassium Level 3.2 mmol/L (3.5-5.1) Chloride Level 107 mmol/L (98-107) Carbon Dioxide Level 27 mmol/L (21-32) Anion Gap 8 (6-14) Blood Urea Nitrogen 11 mg/dL (7-20) Creatinine 1.0 mg/dL (0.6-1.0) Estimated GFR (Cockcroft-Gault) 56.6 Glucose Level 118 mg/dL (70-99) Calcium Level 8.7 mg/dL (8.5-10.1) Laboratory Tests Test 02/10/17 16:20 02/10/17 20:33 02/11/17 03:05 02/11/17 08:15 Glucose (Fingerstick) 109 mg/dL (70-99) 116 mg/dL (70-99) 80 mg/dL (70-99) Sodium Level 142 mmol/L (136-145) Potassium Level 3.2 mmol/L (3.5-5.1) Chloride Level 107 mmol/L (98-107) Carbon Dioxide Level 27 mmol/L (21-32) Anion Gap 8 (6-14) Blood Urea Nitrogen 11 mg/dL (7-20) Creatinine 1.0 mg/dL (0.6-1.0) Estimated GFR (Cockcroft-Gault) 56.6 Glucose Level 118 mg/dL (70-99) Calcium Level 8.7 mg/dL (8.5-10.1) Medications Current Medications Lorazepam (Ativan) 2 mg STK-MED ONCE .ROUTE ; Start 02/10/17 at 04:23; Stop at 04:24; Status DC Ziprasidone (Geodon Im) 20 mg STK-MED ONCE IM ; Start 02/10/17 at 04:35; Stop at 04:36; Status DC Lorazepam (Ativan) 2 mg 1X ONCE IV Last administered on 02/10/17 04:40; Start 02/10/17 at 05:00; Stop 02/10/17 at 05:01; Status DC Ziprasidone (Geodon Im) 10 mg 1X ONCE IM Last administered on 02/10/17 04:42 ; Start 02/10/17 at 05:00; Stop 02/10/17 at 05:01; Status DC Ondansetron HCl (Zofran) 4 mg PRN Q8HRS PRN IV NAUSEA/VOMITING; Start 02/10/17 at 06:15; Stop 02/10/17 at 08:34; Status DC Sodium Chloride 1,000 ml @ 125 mls/hr Q8H IV Last administered on 02/10/17 18 :33; Start 02/10/17 at 06:30; Stop 02/11/17 at 06:29; Status DC Ondansetron HCl (Zofran) 4 mg PRN Q6HRS PRN IV NAUSEA/VOMITING Last administered on 02/10/17 13:24; Start 02/10/17 at 08:31; Stop 02/11/17 at 08:30 ; Status DC Acetaminophen (Tylenol) 500 mg PRN Q6HRS PRN PO MILD PAIN / TEMP; Start at 08:45 Aspirin (Ecotrin) 81 mg DAILY08 PO Last administered on 02/11/17 08:41; Start 02/10/17 at 09:00 Atorvastatin Calcium (Lipitor) 40 mg QHS PO ; Start 02/10/17 at 21:00; Stop at 21:00; Status DC Clonazepam (KlonoPIN) 0.5 mg PRN BID PRN PO ANXIETY; Start 02/10/17 at 08:45 Diphenhydramine HCl (Benadryl) 25 mg PRN TID PRN PO itch; Start 02/10/17 at 08: 45 Acetaminophen/ Hydrocodone Bitart (Lortab 5/325) 1 tab PRN Q6HRS PRN PO PAIN Last administered on 02/10/17 17:46; Start 02/10/17 at 08:45 Lidocaine (Lidoderm) 1 patch DAILY TD ; Start 02/10/17 at 09:00 Ondansetron HCl (Zofran Odt) 4 mg PRN Q8HRS PRN PO n/v; Start 02/10/17 at 08:45 Ondansetron HCl (Zofran Odt) 4 mg PRN BID PRN PO NAUSEA/VOMITING; Start at 08:45 Budesonide (Entocort) 9 mg DAILY PO Last administered on 02/11/17 08:48; Start 02/10/17 at 09:00 Dicyclomine HCl (Bentyl) 10 mg PRN QID PRN PO BOWEL SPASMS; Start 02/10/17 at 08:45; Stop 02/10/17 at 08:45; Status DC Pantoprazole Sodium (Protonix) 40 mg DAILYAC PO Last administered on 02/11/17 08:42; Start 02/10/17 at 09:30 Non-Formulary Medication 50 mg WEEKLY SQ ; Start 02/10/17 at 09:00; Stop at 07:16; Status DC Gabapentin (Neurontin) 300 mg TID PO Last administered on 02/11/17 08:42; Start 02/10/17 at 09:30 Multivitamins (Thera M Plus) 1 tab DAILY PO Last administered on 02/11/17 08: 41; Start 02/10/17 at 10:00 Losartan Potassium (Cozaar) 100 mg DAILY PO Last administered on 02/11/17 08: 46; Start 02/10/17 at 10:00 Non-Formulary Medication 1 each DAILY PO ; Start 02/10/17 at 09:00; Status UNV Atorvastatin Calcium (Lipitor) 10 mg QHS PO Last administered on 02/10/17 21: 06; Start 02/10/17 at 21:00 Fish Oil (Fish Oil) 1,000 mg DAILY PO Last administered on 02/11/17 08:42; Start 02/10/17 at 09:30 Insulin Aspart (NovoLOG) 0-9 UNITS TIDWMEALS SQ ; Start 02/10/17 at 09:00 Dextrose (Dextrose 50%-Water Syringe) 12.5 gm PRN Q15MIN PRN IV SEE COMMENTS; Start 02/10/17 at 08:45 Dicyclomine HCl (Bentyl) 20 mg PRN QID PRN PO BOWEL SPASMS; Start 02/10/17 at 08:45 Active Scripts Active Zofran Odt (Ondansetron) 4 Mg Tab.rapdis 4 Mg PO BID PRN Lidoderm (Lidocaine) 700 Mg Adh..patch 1 Patch TD DAILY Hydrocodone-Apap 5-325 (Hydrocodone Bit/Acetaminophen) 1 Each Tablet 1 Tab PO PRN Q6HRS PRN Reported Humalog (Insulin Lispro) 100 Unit/1 Ml Vial 100 Unit SQ Enbrel (Etanercept) 50 Mg/1 Ml Disp.syrin 50 Mg SQ WEEKLY Benicar (Olmesartan Medoxomil) 40 Mg Tablet 1 Tab PO DAILY Cough & Cold Tablet (Dextromethorphan Hbr/Chlor-Mal) 1 Each Tablet 1 Each PO PRN Dicyclomine Hcl 20 Mg Tablet 20 Mg PO QID PRN Atorvastatin Calcium 40 Mg Tablet 1 Tab PO QHS Centrum Complete Multivit Tab (Multivitamin/Iron/Folic Acid) 1 Each Tablet 1 Each PO DAILY Uceris (Budesonide) 9 Mg Tabdr...er 9 Mg PO DAILY Benadryl (Diphenhydramine Hcl) 25 Mg Capsule 1 Cap PO Zoloft (Sertraline Hcl) 25 Mg Tablet Unknown Dose PO DAILY Zofran Odt (Ondansetron) 4 Mg Tab.rapdis 1 Tab SL Q8HRS Neurontin (Gabapentin) 300 Mg Capsule 300 Mg PO TID Aspir 81 (Aspirin) 81 Mg Tablet. 81 Mg PO DAILY Coq-10 & Fish Oil Softgel (Ubidecarenone/[place]-3/Vit E) 1 Each Capsule 1 Each PO DAILY Nexium Capsule (Esomeprazole Magnesium) 40 Mg Capsule. 40 Mg PO DAILY Fish Oil 1,000 Mg Softgel ([place]-3 Fatty Acids/Fish Oil) 1 Each Capsule 1 Each PO DAILY Cymbalta (Duloxetine Hcl) 30 Mg Capsule. 60 Mg PO BID Pravastatin Sodium 40 Mg Tablet 40 Mg PO DAILY Klonopin (Clonazepam) 0.5 Mg Tablet 0.5 Mg PO BID PRN Vitals/I & O Vital Sign - Last 24 Hours 02/10/17 02/10/17 02/10/17 02/10/17 12:51 15:00 18:45 19:00 Temp 98.2 97.9 98.1 98.2 97.9 98.1 Pulse 74 71 77 Resp 16 18 B/P (MAP) 135/72 (93) 128/63 (84) 122/65 (84) Pulse Ox 98 96 96 99 O2 Delivery Room Air Room Air Room Air 02/10/17 02/10/17 02/11/17 02/11/17 19:10 23:00 03:00 07:00 Temp 98.7 98.0 98.1 98.7 98.0 98.1 Pulse 72 88 89 Resp 18 17 B/P (MAP) 132/80 (97) 120/74 (89) 146/74 (98) Pulse Ox 93 95 95 O2 Delivery Room Air Room Air Room Air Room Air 02/11/17 02/11/17 08:46 11:00 Temp 98.1 98.1 Pulse 89 76 Resp 17 B/P (MAP) 146/74 145/78 (100) Pulse Ox 96 O2 Delivery Room Air Intake and Output 02/10/17 02/10/17 02/11/17 15:00 23:00 07:00 Intake Total 50 ml 200 ml Output Total 2 ml Balance 48 ml 200 ml DARCIE GALEANA MD February 11, 2017 12:26
[2017-02-11] MEDS ORDERED: METHYL SALICYLATE/MENTHOL TOPICAL OINTMENT 29GM TUBE. TP PRN (12:30)
[2017-02-11 15:00] VITALS: BP 128/81
--- NOTE | 2017-02-11 15:06 | PDOC ---
PROGRESS NOTES Assessment Problems Medical Problems: (1) Acute delirium Status: Acute Presumed epilepsy, son describes a seizure last week, perhaps she had a seizure precipitating this admission but no one witnessed it.Metabolic encephalopathy, consider medications, note positive urine drug screen for cannabinoids She has had seizures in the past with negative EEG studies, the one I saw her for in June was convulsive syncope, and the patient had uncomplicated sick of the in the December 2015 admission. She is had 2 negative EEG studies. Positive cannabinoids on urine drug screen Dizziness, no evidence of vertigo, vestibular disease, brainstem disease Plan Observation Hold off on repeat EEG and MRI studies, will check MRI if she is still dizzy tomorrow. Hold off on lumbar puncture I discussed risks, benefits, alternatives, side effects, and will start levetiracetam 500 mg twice a day No driving until 6 months seizure-free She is still dizzy when she stands up, delay discharge at least until tomorrow. Subjective Feels better but dizzy when she stands up Objective Vital Signs Date Time Temp Pulse Resp B/P (MAP) Pulse Ox O2 Delivery O2 Flow Rate FiO2 02/11/17 11:00 98.1 76 17 145/78 (100) 96 Room Air 98.1 Intake and Output 02/11/17 07:00 Intake Total 250 ml Output Total 2 ml Balance 248 ml Intake Oral 250 ml Output Urine Total 2 ml # Voids 1 PHYSICAL EXAM Alert. Oriented to time, place and person. PERRL. EOMI. CN: no focal findings. Muscle tone: normal. Muscle strength: 5/5 DTR: 2+ Plantar reflex: flexor Gait: unsteady upon standing. Sensory exam: no abnormal findings. No cerebellar signs elicited. Review of Relevant I have reviewed the following items etelvina (where applicable) has been applied. Labs Laboratory Tests Test 02/10/17 04:22 02/10/17 04:40 02/10/17 05:04 02/10/17 05:07 Glucose (Fingerstick) 202 mg/dL (70-99) White Blood Count 13.6 x10^3/uL (4.0-11.0) Red Blood Count 4.04 x10^6/uL (3.50-5.40) Hemoglobin 12.4 g/dL (12.0-15.5) Hematocrit 37.0 % (36.0-47.0) Mean Corpuscular Volume 92 fL (79-100) Mean Corpuscular Hemoglobin 31 pg (25-35) Mean Corpuscular Hemoglobin Concent 34 g/dL (31-37) Red Cell Distribution Width 14.8 % (11.5-14.5) Platelet Count 220 x10^3/uL (140-400) Neutrophils (%) (Auto) 65 % (31-73) Lymphocytes (%) (Auto) 26 % (24-48) Monocytes (%) (Auto) 8 % (0-9) Eosinophils (%) (Auto) 1 % (0-3) Basophils (%) (Auto) 0 % (0-3) Neutrophils # (Auto) 8.8 x10^3uL (1.8-7.7) Lymphocytes # (Auto) 3.5 x10^3/uL (1.0-4.8) Monocytes # (Auto) 1.1 x10^3/uL (0.0-1.1) Eosinophils # (Auto) 0.1 x10^3/uL (0.0-0.7) Basophils # (Auto) 0.0 x10^3/uL (0.0-0.2) Segmented Neutrophils % 68 % (35-66) Lymphocytes % 30 % (24-48) Monocytes % 2 % (0-10) Platelet Estimate Adequate (ADEQUATE) Erythrocyte Sedimentation Rate 37 (0-25) Sodium Level 136 mmol/L (136-145) Potassium Level 3.2 mmol/L (3.5-5.1) Chloride Level 97 mmol/L (98-107) Carbon Dioxide Level 19 mmol/L (21-32) Anion Gap 20 (6-14) 22 mmol/L (6-14) Blood Urea Nitrogen 22 mg/dL (7-20) Creatinine 1.5 mg/dL (0.6-1.0) Estimated GFR (Cockcroft-Gault) 35.4 BUN/Creatinine Ratio 15 (6-20) Glucose Level 208 mg/dL (70-99) 208 mg/dL (70-99) Hemoglobin A1c 6.9 % (4.8-5.6) Calcium Level 9.6 mg/dL (8.5-10.1) Total Bilirubin 0.4 mg/dL (0.2-1.0) Aspartate Amino Transf (AST/SGOT) 36 U/L (15-37) Alanine Aminotransferase (ALT/SGPT) 38 U/L (14-59) Alkaline Phosphatase 57 U/L (46-116) Total Protein 7.2 g/dL (6.4-8.2) Albumin 3.7 g/dL (3.4-5.0) Albumin/Globulin Ratio 1.1 (1.0-1.7) Ethyl Alcohol Level < 10 mg/dL (0-10) Bedside Troponin I 0.00 ng/ml (<0.08) Bedside Hemoglobin 12.6 g/dL (12-15) Bedside Hematocrit 37 % (36-40) Bedside Sodium 134 mmol/L (135-145) Bedside Potassium 3.1 mmol/L (3.5-5.0) Bedside Chloride 101 mmol/L (98-110) Bedside Total CO2 16 mmol/L (23-32) Bedside Blood Urea Nitrogen 20 mg/dL (8-26) Bedside Creatinine 1.1 mg/dL (0.5-1.4) Bedside Ionized Calcium (Renae) 1.01 mmol/L (1.13-1.32) Test 02/10/17 05:24 02/10/17 09:53 02/10/17 11:08 02/10/17 16:20 Urine Collection Type Unknown Urine Color Yellow Urine Clarity Clear Urine pH 5.5 Urine Specific [place] 1.020 Urine Protein 30 mg/dL (NEG-TRACE) Urine Glucose (UA) >=1000 mg/dL (NEG) Urine Ketones (Stick) Negative mg/dL (NEG) Urine Blood Moderate (NEG) Urine Nitrite Negative (NEG) Urine Bilirubin Negative (NEG) Urine Urobilinogen Dipstick 0.2 mg/dL (0.2 mg/dL) Urine Leukocyte Esterase Negative (NEG) Urine RBC 1-2 /HPF (0-2) Urine WBC 1-4 /HPF (0-4) Urine Squamous Epithelial Cells Few /LPF Urine Bacteria 0 /HPF (0-FEW) Urine Mucus Slight /LPF Urine Opiates Screen Neg (NEG) Urine Methadone Screen Neg (NEG) Urine Barbiturates Neg (NEG) Urine Phencyclidine Screen Neg (NEG) Urine Amphetamine/Methamphetamine Neg (NEG) Urine Benzodiazepines Screen Neg (NEG) Urine Cocaine Screen Neg (NEG) Urine Cannabinoids Screen Pos (NEG) Urine Ethyl Alcohol Neg (NEG) Glucose (Fingerstick) 136 mg/dL (70-99) 124 mg/dL (70-99) 109 mg/dL (70-99) Test 02/10/17 20:33 02/11/17 03:05 02/11/17 08:15 Glucose (Fingerstick) 116 mg/dL (70-99) 80 mg/dL (70-99) Sodium Level 142 mmol/L (136-145) Potassium Level 3.2 mmol/L (3.5-5.1) Chloride Level 107 mmol/L (98-107) Carbon Dioxide Level 27 mmol/L (21-32) Anion Gap 8 (6-14) Blood Urea Nitrogen 11 mg/dL (7-20) Creatinine 1.0 mg/dL (0.6-1.0) Estimated GFR (Cockcroft-Gault) 56.6 Glucose Level 118 mg/dL (70-99) Calcium Level 8.7 mg/dL (8.5-10.1) Laboratory Tests Test 02/10/17 16:20 02/10/17 20:33 02/11/17 03:05 02/11/17 08:15 Glucose (Fingerstick) 109 mg/dL (70-99) 116 mg/dL (70-99) 80 mg/dL (70-99) Sodium Level 142 mmol/L (136-145) Potassium Level 3.2 mmol/L (3.5-5.1) Chloride Level 107 mmol/L (98-107) Carbon Dioxide Level 27 mmol/L (21-32) Anion Gap 8 (6-14) Blood Urea Nitrogen 11 mg/dL (7-20) Creatinine 1.0 mg/dL (0.6-1.0) Estimated GFR (Cockcroft-Gault) 56.6 Glucose Level 118 mg/dL (70-99) Calcium Level 8.7 mg/dL (8.5-10.1) Medications Current Medications Lorazepam (Ativan) 2 mg STK-MED ONCE .ROUTE ; Start 02/10/17 at 04:23; Stop at 04:24; Status DC Ziprasidone (Geodon Im) 20 mg STK-MED ONCE IM ; Start 02/10/17 at 04:35; Stop at 04:36; Status DC Lorazepam (Ativan) 2 mg 1X ONCE IV Last administered on 02/10/17 04:40; Start 02/10/17 at 05:00; Stop 02/10/17 at 05:01; Status DC Ziprasidone (Geodon Im) 10 mg 1X ONCE IM Last administered on 02/10/17 04:42 ; Start 02/10/17 at 05:00; Stop 02/10/17 at 05:01; Status DC Ondansetron HCl (Zofran) 4 mg PRN Q8HRS PRN IV NAUSEA/VOMITING; Start 02/10/17 at 06:15; Stop 02/10/17 at 08:34; Status DC Sodium Chloride 1,000 ml @ 125 mls/hr Q8H IV Last administered on 02/10/17 18 :33; Start 02/10/17 at 06:30; Stop 02/11/17 at 06:29; Status DC Ondansetron HCl (Zofran) 4 mg PRN Q6HRS PRN IV NAUSEA/VOMITING Last administered on 02/10/17 13:24; Start 02/10/17 at 08:31; Stop 02/11/17 at 08:30 ; Status DC Acetaminophen (Tylenol) 500 mg PRN Q6HRS PRN PO MILD PAIN / TEMP; Start at 08:45 Aspirin (Ecotrin) 81 mg DAILY08 PO Last administered on 02/11/17 08:41; Start 02/10/17 at 09:00 Atorvastatin Calcium (Lipitor) 40 mg QHS PO ; Start 02/10/17 at 21:00; Stop at 21:00; Status DC Clonazepam (KlonoPIN) 0.5 mg PRN BID PRN PO ANXIETY; Start 02/10/17 at 08:45 Diphenhydramine HCl (Benadryl) 25 mg PRN TID PRN PO itch; Start 02/10/17 at 08: 45 Acetaminophen/ Hydrocodone Bitart (Lortab 5/325) 1 tab PRN Q6HRS PRN PO PAIN Last administered on 02/10/17 17:46; Start 02/10/17 at 08:45 Lidocaine (Lidoderm) 1 patch DAILY TD ; Start 02/10/17 at 09:00 Ondansetron HCl (Zofran Odt) 4 mg PRN Q8HRS PRN PO n/v; Start 02/10/17 at 08:45 Ondansetron HCl (Zofran Odt) 4 mg PRN BID PRN PO NAUSEA/VOMITING; Start at 08:45 Budesonide (Entocort) 9 mg DAILY PO Last administered on 02/11/17 08:48; Start 02/10/17 at 09:00 Dicyclomine HCl (Bentyl) 10 mg PRN QID PRN PO BOWEL SPASMS; Start 02/10/17 at 08:45; Stop 02/10/17 at 08:45; Status DC Pantoprazole Sodium (Protonix) 40 mg DAILYAC PO Last administered on 02/11/17 08:42; Start 02/10/17 at 09:30 Non-Formulary Medication 50 mg WEEKLY SQ ; Start 02/10/17 at 09:00; Stop at 07:16; Status DC Gabapentin (Neurontin) 300 mg TID PO Last administered on 02/11/17 08:42; Start 02/10/17 at 09:30 Multivitamins (Thera M Plus) 1 tab DAILY PO Last administered on 02/11/17 08: 41; Start 02/10/17 at 10:00 Losartan Potassium (Cozaar) 100 mg DAILY PO Last administered on 02/11/17 08: 46; Start 02/10/17 at 10:00 Non-Formulary Medication 1 each DAILY PO ; Start 02/10/17 at 09:00; Status UNV Atorvastatin Calcium (Lipitor) 10 mg QHS PO Last administered on 02/10/17 21: 06; Start 02/10/17 at 21:00 Fish Oil (Fish Oil) 1,000 mg DAILY PO Last administered on 02/11/17 08:42; Start 02/10/17 at 09:30 Insulin Aspart (NovoLOG) 0-9 UNITS TIDWMEALS SQ Last administered on 02/11/17 13:25; Start 02/10/17 at 09:00 Dextrose (Dextrose 50%-Water Syringe) 12.5 gm PRN Q15MIN PRN IV SEE COMMENTS; Start 02/10/17 at 08:45 Dicyclomine HCl (Bentyl) 20 mg PRN QID PRN PO BOWEL SPASMS; Start 02/10/17 at 08:45 Multi-Ingredient Ointment (Analgesic [place]) 1 paul PRN QID PRN TP MUSCLE PAIN; Start 02/11/17 at 12:30 Active Scripts Active Zofran Odt (Ondansetron) 4 Mg Tab.rapdis 4 Mg PO BID PRN Lidoderm (Lidocaine) 700 Mg Adh..patch 1 Patch TD DAILY Hydrocodone-Apap 5-325 (Hydrocodone Bit/Acetaminophen) 1 Each Tablet 1 Tab PO PRN Q6HRS PRN Reported Humalog (Insulin Lispro) 100 Unit/1 Ml Vial 100 Unit SQ Enbrel (Etanercept) 50 Mg/1 Ml Disp.syrin 50 Mg SQ WEEKLY Benicar (Olmesartan Medoxomil) 40 Mg Tablet 1 Tab PO DAILY Cough & Cold Tablet (Dextromethorphan Hbr/Chlor-Mal) 1 Each Tablet 1 Each PO PRN Dicyclomine Hcl 20 Mg Tablet 20 Mg PO QID PRN Atorvastatin Calcium 40 Mg Tablet 1 Tab PO QHS Centrum Complete Multivit Tab (Multivitamin/Iron/Folic Acid) 1 Each Tablet 1 Each PO DAILY Uceris (Budesonide) 9 Mg Tabdr...er 9 Mg PO DAILY Benadryl (Diphenhydramine Hcl) 25 Mg Capsule 1 Cap PO Zoloft (Sertraline Hcl) 25 Mg Tablet Unknown Dose PO DAILY Zofran Odt (Ondansetron) 4 Mg Tab.rapdis 1 Tab SL Q8HRS Neurontin (Gabapentin) 300 Mg Capsule 300 Mg PO TID Aspir 81 (Aspirin) 81 Mg Tablet. 81 Mg PO DAILY Coq-10 & Fish Oil Softgel (Ubidecarenone/[place]-3/Vit E) 1 Each Capsule 1 Each PO DAILY Nexium Capsule (Esomeprazole Magnesium) 40 Mg Capsule. 40 Mg PO DAILY Fish Oil 1,000 Mg Softgel ([place]-3 Fatty Acids/Fish Oil) 1 Each Capsule 1 Each PO DAILY Cymbalta (Duloxetine Hcl) 30 Mg Capsule. 60 Mg PO BID Pravastatin Sodium 40 Mg Tablet 40 Mg PO DAILY Klonopin (Clonazepam) 0.5 Mg Tablet 0.5 Mg PO BID PRN Vitals/I & O Vital Sign - Last 24 Hours 02/10/17 02/10/17 02/10/17 02/10/17 18:45 19:00 19:10 23:00 Temp 98.1 98.7 98.1 98.7 Pulse 77 72 Resp 18 B/P (MAP) 122/65 (84) 132/80 (97) Pulse Ox 96 99 93 O2 Delivery Room Air Room Air Room Air Room Air 02/11/17 02/11/17 02/11/17 02/11/17 03:00 07:00 08:46 11:00 Temp 98.0 98.1 98.1 98.0 98.1 98.1 Pulse 88 89 89 76 Resp B/P (MAP) 120/74 (89) 146/74 (98) 146/74 145/78 (100) Pulse Ox 95 95 96 O2 Delivery Room Air Room Air Room Air Intake and Output 02/10/17 02/10/17 02/11/17 15:00 23:00 07:00 Intake Total 50 ml 200 ml Output Total 2 ml Balance 48 ml 200 ml BELINDA KIRBY MD February 11, 2017 15:06
[2017-02-11] MEDS: levETIRAcetam 500 MG TABLET PO SCH ×2 (16:09→22:01)
[2017-02-11] MEDS: HYDROcodone/APAP 5/325MG 1 TAB TABLET PO PRN ×2 (16:20→22:05)
[2017-02-11 19:00] VITALS: BP 135/78
[2017-02-11] MEDS: ATORVASTATIN CALCIUM 10 MG TABLET. PO SCH (22:01)
[2017-02-11 23:00] VITALS: BP 138/75
[2017-02-12 07:23] VITALS: BP 124/82
[2017-02-12] MEDS: MULTIVITAMIN with MINERAL TABLET. PO SCH (08:29)
[2017-02-12] MEDS: levETIRAcetam 500 MG TABLET PO SCH (08:29)
[2017-02-12] MEDS: GABAPENTIN 300 MG CAPSULE. PO SCH ×2 (08:30→13:49)
[2017-02-12] MEDS: BUDESONIDE 3 MG CAP.ER.24H. PO SCH (08:30)
[2017-02-12] MEDS: ASPIRIN ENTERIC COATED 81 MG TABLET.DR. PO SCH (08:30)
[2017-02-12] MEDS: PANTOPRAZOLE 40 MG TABLET.DR. PO SCH (08:30)
[2017-02-12] MEDS: OMEGA-3 FATTY ACIDS/FISH OIL 1,000 MG CAPSULE. PO SCH (08:30)
[2017-02-12] MEDS: LOSARTAN POTASSIUM 50 MG TABLET. PO SCH (08:31)
[2017-02-12] MEDS: INSULIN ASPART 300 UNITS/3 ML INSULN.PEN SQ SCH ×2 (08:40→11:50)
[2017-02-12 10:50] VITALS: BP 157/98
--- NOTE | 2017-02-12 10:59 | PDOC ---
PROGRESS NOTES Assessment Problems Medical Problems: (1) Acute delirium Status: Acute Presumed epilepsy Metabolic encephalopathy, may have been prolonged postictal state Note positive urine drug screen for cannabinoids Dizziness, improved, no evidence of vertigo, vestibular disease, brainstem disease Plan Okay for discharge Hold off on repeat EEG and MRI studies, will check MRI if she is still dizzy tomorrow. Hold off on lumbar puncture Levetiracetam 500 mg twice a day No driving until 6 months seizure-free. I discussed other seizure precautions with the patient, and her son by phone Follow-up with Dr. Gonzalez as scheduled, or in 1 month Subjective Feels better, wants to go home Objective Vital Signs Date Time Temp Pulse Resp B/P (MAP) Pulse Ox O2 Delivery O2 Flow Rate FiO2 02/12/17 08:31 88 124/82 02/12/17 08:00 Room Air 02/12/17 07:23 98.1 20 98 98.1 Intake and Output 02/12/17 07:00 Intake Total 450 ml Output Total 3 ml Balance 447 ml Intake Oral 450 ml Output Urine Total 3 ml # Voids 4 PHYSICAL EXAM Alert. Oriented to time, place and person. PERRL. EOMI. CN: no focal findings. Muscle tone: normal. Muscle strength: 5/5 DTR: 2+ Plantar reflex: flexor Gait: unsteady upon standing, much better than yesterday. Sensory exam: no abnormal findings. No cerebellar signs elicited. Review of Relevant I have reviewed the following items etelvina (where applicable) has been applied. Labs Laboratory Tests Test 02/10/17 11:08 02/10/17 16:20 02/10/17 20:33 02/11/17 03:05 Glucose (Fingerstick) 124 mg/dL (70-99) 109 mg/dL (70-99) 116 mg/dL (70-99) Sodium Level 142 mmol/L (136-145) Potassium Level 3.2 mmol/L (3.5-5.1) Chloride Level 107 mmol/L (98-107) Carbon Dioxide Level 27 mmol/L (21-32) Anion Gap 8 (6-14) Blood Urea Nitrogen 11 mg/dL (7-20) Creatinine 1.0 mg/dL (0.6-1.0) Estimated GFR (Cockcroft-Gault) 56.6 Glucose Level 118 mg/dL (70-99) Calcium Level 8.7 mg/dL (8.5-10.1) Test 02/11/17 08:15 02/11/17 10:54 02/11/17 16:49 02/11/17 23:37 Glucose (Fingerstick) 80 mg/dL (70-99) 241 mg/dL (70-99) 253 mg/dL (70-99) 196 mg/dL (70-99) Test 02/12/17 07:25 Glucose (Fingerstick) 184 mg/dL (70-99) Laboratory Tests Test 02/11/17 16:49 02/11/17 23:37 02/12/17 07:25 Glucose (Fingerstick) 253 mg/dL (70-99) 196 mg/dL (70-99) 184 mg/dL (70-99) Medications Current Medications Lorazepam (Ativan) 2 mg STK-MED ONCE .ROUTE ; Start 02/10/17 at 04:23; Stop at 04:24; Status DC Ziprasidone (Geodon Im) 20 mg STK-MED ONCE IM ; Start 02/10/17 at 04:35; Stop at 04:36; Status DC Lorazepam (Ativan) 2 mg 1X ONCE IV Last administered on 02/10/17 04:40; Start 02/10/17 at 05:00; Stop 02/10/17 at 05:01; Status DC Ziprasidone (Geodon Im) 10 mg 1X ONCE IM Last administered on 02/10/17 04:42 ; Start 02/10/17 at 05:00; Stop 02/10/17 at 05:01; Status DC Ondansetron HCl (Zofran) 4 mg PRN Q8HRS PRN IV NAUSEA/VOMITING; Start 02/10/17 at 06:15; Stop 02/10/17 at 08:34; Status DC Sodium Chloride 1,000 ml @ 125 mls/hr Q8H IV Last administered on 02/10/17 18 :33; Start 02/10/17 at 06:30; Stop 02/11/17 at 06:29; Status DC Ondansetron HCl (Zofran) 4 mg PRN Q6HRS PRN IV NAUSEA/VOMITING Last administered on 5/17/17at 13:24; Start 02/10/17 at 08:31; Stop 02/11/17 at 08:30 ; Status DC Acetaminophen (Tylenol) 500 mg PRN Q6HRS PRN PO MILD PAIN / TEMP; Start at 08:45 Aspirin (Ecotrin) 81 mg DAILY08 PO Last administered on 02/12/17 08:30; Start 02/10/17 at 09:00 Atorvastatin Calcium (Lipitor) 40 mg QHS PO ; Start 02/10/17 at 21:00; Stop at 21:00; Status DC Clonazepam (KlonoPIN) 0.5 mg PRN BID PRN PO ANXIETY; Start 02/10/17 at 08:45 Diphenhydramine HCl (Benadryl) 25 mg PRN TID PRN PO itch; Start 02/10/17 at 08: 45 Acetaminophen/ Hydrocodone Bitart (Lortab 5/325) 1 tab PRN Q6HRS PRN PO PAIN Last administered on 02/11/17 22:05; Start 02/10/17 at 08:45 Lidocaine (Lidoderm) 1 patch DAILY TD Last administered on 02/11/17 16:16; Start 02/10/17 at 09:00 Ondansetron HCl (Zofran Odt) 4 mg PRN Q8HRS PRN PO n/v; Start 02/10/17 at 08:45 Ondansetron HCl (Zofran Odt) 4 mg PRN BID PRN PO NAUSEA/VOMITING; Start at 08:45 Budesonide (Entocort) 9 mg DAILY PO Last administered on 02/12/17 08:30; Start 02/10/17 at 09:00 Dicyclomine HCl (Bentyl) 10 mg PRN QID PRN PO BOWEL SPASMS; Start 02/10/17 at 08:45; Stop 02/10/17 at 08:45; Status DC Pantoprazole Sodium (Protonix) 40 mg DAILYAC PO Last administered on 02/12/17 08:30; Start 02/10/17 at 09:30 Non-Formulary Medication 50 mg WEEKLY SQ ; Start 02/10/17 at 09:00; Stop at 07:16; Status DC Gabapentin (Neurontin) 300 mg TID PO Last administered on 02/12/17 08:30; Start 02/10/17 at 09:30 Multivitamins (Thera M Plus) 1 tab DAILY PO Last administered on 02/12/17 08: 29; Start 02/10/17 at 10:00 Losartan Potassium (Cozaar) 100 mg DAILY PO Last administered on 02/12/17 08: 31; Start 02/10/17 at 10:00 Non-Formulary Medication 1 each DAILY PO ; Start 02/10/17 at 09:00; Status UNV Atorvastatin Calcium (Lipitor) 10 mg QHS PO Last administered on 02/11/17 22: 01; Start 02/10/17 at 21:00 Fish Oil (Fish Oil) 1,000 mg DAILY PO Last administered on 02/12/17 08:30; Start 02/10/17 at 09:30 Insulin Aspart (NovoLOG) 0-9 UNITS TIDWMEALS SQ Last administered on 02/12/17 08:40; Start 02/10/17 at 09:00 Dextrose (Dextrose 50%-Water Syringe) 12.5 gm PRN Q15MIN PRN IV SEE COMMENTS; Start 02/10/17 at 08:45 Dicyclomine HCl (Bentyl) 20 mg PRN QID PRN PO BOWEL SPASMS; Start 02/10/17 at 08:45 Multi-Ingredient Ointment (Analgesic [place]) 1 paul PRN QID PRN TP MUSCLE PAIN Last administered on 02/11/17 22:05; Start 02/11/17 at 12:30 Levetiracetam (Keppra) 500 mg BID PO Last administered on 02/12/17 08:29; Start 02/11/17 at 15:00 Active Scripts Active Zofran Odt (Ondansetron) 4 Mg Tab.rapdis 4 Mg PO BID PRN Lidoderm (Lidocaine) 700 Mg Adh..patch 1 Patch TD DAILY Hydrocodone-Apap 5-325 (Hydrocodone Bit/Acetaminophen) 1 Each Tablet 1 Tab PO PRN Q6HRS PRN Reported Humalog (Insulin Lispro) 100 Unit/1 Ml Vial 100 Unit SQ Enbrel (Etanercept) 50 Mg/1 Ml Disp.syrin 50 Mg SQ WEEKLY Benicar (Olmesartan Medoxomil) 40 Mg Tablet 1 Tab PO DAILY Cough & Cold Tablet (Dextromethorphan Hbr/Chlor-Mal) 1 Each Tablet 1 Each PO PRN Dicyclomine Hcl 20 Mg Tablet 20 Mg PO QID PRN Atorvastatin Calcium 40 Mg Tablet 1 Tab PO QHS Centrum Complete Multivit Tab (Multivitamin/Iron/Folic Acid) 1 Each Tablet 1 Each PO DAILY Uceris (Budesonide) 9 Mg Tabdr...er 9 Mg PO DAILY Benadryl (Diphenhydramine Hcl) 25 Mg Capsule 1 Cap PO Zoloft (Sertraline Hcl) 25 Mg Tablet Unknown Dose PO DAILY Zofran Odt (Ondansetron) 4 Mg Tab.rapdis 1 Tab SL Q8HRS Neurontin (Gabapentin) 300 Mg Capsule 300 Mg PO TID Aspir 81 (Aspirin) 81 Mg Tablet. 81 Mg PO DAILY Coq-10 & Fish Oil Softgel (Ubidecarenone/[place]-3/Vit E) 1 Each Capsule 1 Each PO DAILY Nexium Capsule (Esomeprazole Magnesium) 40 Mg Capsule. 40 Mg PO DAILY Fish Oil 1,000 Mg Softgel ([place]-3 Fatty Acids/Fish Oil) 1 Each Capsule 1 Each PO DAILY Cymbalta (Duloxetine Hcl) 30 Mg Capsule. 60 Mg PO BID Pravastatin Sodium 40 Mg Tablet 40 Mg PO DAILY Klonopin (Clonazepam) 0.5 Mg Tablet 0.5 Mg PO BID PRN Vitals/I & O Vital Sign - Last 24 Hours 02/11/17 02/11/17 02/11/17 02/11/17 11:00 15:00 16:20 17:20 Temp 98.1 96.1 98.1 96.1 Pulse 76 96 Resp 17 20 B/P (MAP) 145/78 (100) 128/81 (97) Pulse Ox 96 93 96 O2 Delivery Room Air Room Air Room Air 02/11/17 02/11/17 02/11/17 02/11/17 19:00 22:05 22:05 23:00 Temp 96.1 98.1 96.1 98.1 Pulse 88 82 Resp 18 20 19 B/P (MAP) 135/78 (97) 138/75 (96) Pulse Ox 97 98 O2 Delivery Room Air Room Air Room Air Room Air 02/11/17 02/12/17 02/12/17 02/12/17 23:41 07:23 08:00 08:31 Temp 98.1 98.1 Pulse 88 88 Resp 20 20 B/P (MAP) 124/82 (96) 124/82 Pulse Ox 98 O2 Delivery Room Air Room Air Room Air Intake and Output 02/11/17 02/11/17 02/12/17 15:00 23:00 07:00 Intake Total 450 ml Output Total 3 ml Balance 447 ml BELINDA KIRBY MD February 12, 2017 10:59
[2017-02-12] MEDS ORDERED: LEVE500T56 PO (14:13)
[2017-02-12 14:30] VITALS: BP 158/96
== END 2017-02-12 16:15 | disposition home or self-care (01) | DRG 100 ==
LOC: ER 04:13 → 5 NORTH 06:06
PROVIDERS: ADMIT Internal Medicine; ATTEND Internal Medicine
DX: G40.909 Epilepsy, unspecified, not intractable, without status epilepticus (principal); G93.41 Metabolic encephalopathy; N17.9 Acute kidney failure, unspecified; R65.10 Systemic inflammatory response syndrome (SIRS) of non-infectious origin without acute organ dysfunction; E87.2 Acidosis; R41.0 Disorientation, unspecified; D72.828 Other elevated white blood cell count; E11.43 Type 2 diabetes mellitus with diabetic autonomic (poly)neuropathy; E78.00 Pure hypercholesterolemia, unspecified; E78.5 Hyperlipidemia, unspecified; E87.6 Hypokalemia; E87.8 Other disorders of electrolyte and fluid balance, not elsewhere classified; H91.90 Unspecified hearing loss, unspecified ear; I10 Essential (primary) hypertension; K21.9 Gastro-esophageal reflux disease without esophagitis; K31.84 Gastroparesis; R29.6 Repeated falls; F12.90 Cannabis use, unspecified, uncomplicated; F32.9 Major depressive disorder, single episode, unspecified; F41.9 Anxiety disorder, unspecified; Z90.49 Acquired absence of other specified parts of digestive tract; Z91.81 History of falling; Z90.710 Acquired absence of both cervix and uterus; Z82.49 Family history of ischemic heart disease and other diseases of the circulatory system; Z82.3 Family history of stroke; Z88.8 Allergy status to other drugs, medicaments and biological substances
CPT/HCPCS: 36415; 51701; 70450; 80047; 80048; 80053; 81001; 82947; 83036; 84484; 85007; 85027; 85651; 93005; 96372; 96374; G0480; G0481; J1815; J2060; J2405; J3486; J7030; 97116; 97530; 97535; 99285-25

== ENCOUNTER → 2017-06-11 | Outpatient (CLI) | payer MEDICARE ==
[~2017-06-11] MED LIST changes: -ETAN50DI SQ; +ETAN50DI2 SQ; -HYDR-2666 PO; +HYDR-2758 PO; +LEVE500T56 PO; -OLME40TA PO; +OLME40TA12 PO; -OMEG1CAP16 PO; +OMEG1CAP27 PO
--- NOTE | 2017-06-11 17:47 | EEG ---
DATE OF SERVICE: 06/11/2017 EEG NUMBER: [id number] OBJECTIVE: This is a 61-year-old female patient with history of seizure. EEG was requested to evaluate the seizure activity. METHODS: Twenty electrodes were applied according to the international 10-20 electrode placement system. EKG monitoring, hyperventilation, intermittent photic stimulation, monopolar and bipolar montages are routinely utilized. The record was obtained on a digital system with video monitoring. FINDINGS: 1. Background: The patient was recorded in the awake, drowsy, and sleep states. The overall background amplitude is 10-30 microvolts. A posterior dominant rhythm of 8-9 Hz is observed. 2. Abnormalities. No specific epileptiform discharge or electrographic seizure is seen. No focal or diffuse slowing. 3. Activation: Hyperventilation was performed with good efforts and normal response. Intermittent photic stimulation was performed with photic driving. No specific epileptiform discharge or electrographic seizure induced by hyperventilation or intermittent photic stimulation. IMPRESSION: This EEG is a normal study for the awake, drowsy and sleep states. No focal, lateralizing, specific epileptiform discharge or electrographic seizure is seen. However, a normal EEG does not rule out seizure. BIRGIT FUNEZ MD DR: DENNIS/ronak JOB#: [id number] / [id number] DMITRY
== END | disposition home or self-care (01) ==
LOC: RT 10:32
PROVIDERS: ATTEND Psychiatry & Neurology Neurology
DX: R06.4 Hyperventilation (principal)
CPT/HCPCS: 95816

== ENCOUNTER → 2017-09-21 | Outpatient (CLI) | payer MEDICARE ==
--- NOTE | 2017-09-21 12:10 | RAD ---
Left hand, 3 views, 09/21/2017: History: Trauma pain No fracture or dislocation is identified. There mild degenerative changes at scattered interphalangeal joints and the first MCP joint. IMPRESSION: No acute bony abnormality is detected.
== END | disposition home or self-care (01) ==
LOC: RAD 10:54
PROVIDERS: ATTEND Psychiatry & Neurology Neurology
DX: M79.645 Pain in left finger(s) (principal)
CPT/HCPCS: 73130